=== PATIENT | female | born 1970 | race Caucasian/White ===

== ENCOUNTER 2019-12-30 09:17 | Inpatient (IN) ==
--- NOTE | 2019-12-30 10:09 | ERNOTE ---
Medical Problem HPI - Narrative Date of Service: 12/30/19 - General Chief Complaint: General Assessment Time Seen by Provider: 12/30/19 10:06 Source: patient, RN notes reviewed, old records Exam Limitations: no limitations - Immun/Allergies/Home Medications Immunizations: IMMUNIZATION HX Immunizations Up to Date Yes History of Influenza Vaccine Yes Hx Pneumococcal Vaccination No Allergies/Adverse Reactions: Allergies No Known Allergies Allergy (Verified 12/30/19 09:38) Home Medications: HOME MEDICATIONS Furosemide 20 mg PO DAILY 12/30/19 [Last Taken Unknown] Gabapentin 300 mg PO BID 12/30/19 [Last Taken Unknown] Levothyroxine Sodium [Synthroid] 75 mcg PO DAILY 12/30/19 [Last Taken Unknown] Spironolactone 50 mg PO DAILY 12/30/19 [Last Taken Unknown] - History of Present History Narrative: Jessica is a 49 year old female who presents to the ED for diarrhea. This began approximately 2 months ago. She started noticing small amounts of bright red blood in her stool and on the toilet paper after wiping in the past 2 or 3 days. She is having multiple liquid stools per day and is sometimes waking up at night with diarrhea. She denies nausea or vomiting. She occasionally has some diffuse abdominal pain. She has abdominal bloating but reports that it is not worse than usual. She was seen here for abdominal pain 2 years ago and was found to have acute hepatitis. She was drinking heavily at that time and has not drank since. She was transferred to [facility] then and has been followed by Dr. Fournier in gastroenterology. She has occasionally taken Pepto Bismol for her diarrhea without improvement. Timing: getting worse Modifying Factors - (Improves): Absent: medication Modifying Factors - (Worsens): Present: eating Review of Systems - Review of Systems Constitutional: Present: malaise. Absent: fever, chills EYE: Absent: eye pain, eye discharge ENT: Absent: ear pain, nose congestion, nasal drainage, sore throat Respiratory: Absent: shortness of breath, cough Cardiology: Absent: chest pain, palpitations Gastrointestinal/Abdominal: Present: See HPI, eating less. Absent: drinking less Genitourinary: Absent: frequency, dysuria Musculoskeletal: Absent: muscle pain, joint pain Skin: Absent: rash, lesions, change in color Neurological: Absent: headache, dizziness/light-headedness Endocrine: Present: no symptoms reported Hematologic/Lymphatic: Present: easy bruising, easy bleeding Psych: Present: no symptoms reported Medical History (Last Reviewed 12/30/19 @ 11:55 by Marisa Arreguin NP) Acute hepatitis Ascites Hyperthyroidism Surgical History: Surgical History (Last Reviewed 12/30/19 @ 11:55 by Marisa Arreguin NP) History of appendectomy Hx of bilateral breast reduction surgery Family History: Family History (Last Reviewed 12/30/19 @ 11:55 by Marisa Arreguin NP) Mother CVA (cerebral vascular accident) Father Skin cancer Social History: (Last Reviewed 12/30/19 @ 11:55 by Marisa Arreguin NP) Tobacco: Smoking Status: Current every day smoker Physical Exam - Physical Exam General Appearance: Present: wd/wn, alert, other - In no acute distress but appears to not feel well Head Exam: Present: normal inspection Eye Exam: PERRL: bilateral, Scleral icterus: bilateral Neck: Present: normal inspection, nontender, supple, full range of motion Respiratory: Present: no respiratory distress, normal breath sounds, no accessory muscle use, lungs clear Cardiovascular/Chest: Present: no murmur, normal peripheral pulses, tachycardia Gastrointestinal/Abdominal: Present: soft, tenderness - Mild, LUQ, distended - Ascites Back Exam: Present: normal inspection, normal range of motion Extremity Exam: Present: normal inspection, normal range of motion Neurological Exam: Present: alert, oriented, normal mood/affect, no motor/sensory deficits Skin Exam: Present: warm/dry, jaundice Progress - Results and Orders Patient's Lab Results:: I have reviewed the patient's lab results. - Vital Signs Patient's Vital Signs:: I have reviewed the patient's vital signs. Vital Signs: Vital Signs 12/30/19 09:34 Temperature 36.7 C Pulse Rate 140 H Respiratory Rate 14 Blood Pressure 131/76 O2 Sat by Pulse Oximetry 98 - EKG EKG #1 EKG: premature ventricular contraction, nonspecific ST T wave changes, other - Sinus tach, rate 136 EKG read: Reviewed by me - CT/Ultrasound CT/Ultrasound Narrative: CT abdomen/pelvis: Comparison: 12/14/2017 Findings: Liver is enlarged measuring over 28 cm. There is somewhat inhomogeneous but diffuse fatty infiltration. There is a subcapsular low-density area anteriorly. The mixed overall low density can also be associated with hepatitis which must be considered clinically. This is all unchanged in appearance in the interval. There is cholelithiasis. Spleen is prominent but within normal limits. Adrenal glands appear within normal limits. Pancreas appears within normal limits. Kidneys appear within normal limits. There is a fat-containing periumbilical hernia. There is no bowel obstruction or free air. There is some bowel wall thickening involving the distal small bowel less so the ascending colon. There is some free fluid in the pelvis which is actually less pronounced than the previous study. There is diverticulosis without CT evidence for diverticulitis. Uterus and pelvic structures otherwise appear within normal limits. IMPRESSION: HEPATOMEGALY WITH IRREGULAR LIVER ECHOTEXTURE SIMILAR IN APPEARANCE TO THE PREVIOUS STUDY. THERE APPEARS TO BE A COMPONENT OF FATTY INFILTRATION. HEPATITIS MUST BE CONSIDERED CLINICALLY. MILD ASCITES ACTUALLY LESS PRONOUNCED. SOME NONSPECIFIC SMALL BOWEL INFLAMMATORY CHANGE DISTAL SMALL BOWEL. THIS MAY BE ENTERITIS AND COULD BE ASSOCIATED WITH HEPATITIS AND CLINICAL CORRELATION IS NECESSARY. UNCOMPLICATED FAT-CONTAINING PERIUMBILICAL HERNIA. Electronically signed by Kris Humphreys M.D.. Kris Humphreys MD - Progress/Reassessment Chief Complaint: General Assessment Progress:: Unchanged Progress Note-Subjective: 12/30/19 15:28 The patient's hepatic function had been improving since she was diagnosed with cirrhosis 2 years ago and had stopped drinking, but it has now worsened again. She is also hypokalemic and hyponatremic. She is on thyroid replacement but her TSH is 8 despite her FT4 being elevated as well. The etiology of her diarrhea is not clear. She tested negative for CDiff. Cultures are pending. I spoke to Dr. Bowling about admitting the patient here but he felt that she needed to be at [facility] where she sees GI. I contacted the ED there at [phone] and am currently awaiting a call back. 12/30/19 17:[address] Richard at [facility] at approximately [phone]. He would be glad to accept the patient for transfer but they do not have any beds available. They will call us when they do. I discussed other options with the patient. She would rather stay here if possible. I again spoke with Dr. Bowling. He agreed to admit the patient. Departure Clinical Impression: Acute on chronic alcoholic liver disease, Hypokalemia UTI (urinary tract infection) Qualifiers: Urinary tract infection type: site unspecified Hematuria presence: with hematuria Qualified Code(s): N39.0 - Urinary tract infection, site not specified - Departure Disposition: Still a patient Condition: Stable Referrals: MICHELLE ESCALANTE [Primary Care Provider] -
[2019-12-30 10:28] LABS: Hematocrit 34.6 % (37.0-47.0); Hemoglobin 12.2 gm/dL (12.5-16.0); Mean Cell Volume 100.6 fl (78-100); Mean Corpuscular Hemoglobin 35.5 pg (27-31); Mean Corpuscular Hgb Conc 35.3 g/dl (32-36); Mean Platelet Volume 10.4 fl (8-12.5); Neutrophil # 12.8 K/mm3 (1.3-6.0); Neutrophil % 87.3 % (42-75.0); Platelet Count 116 K/mm3 (150-450); Red Blood Count 3.44 M/mm3 (4.2-5.4); Red Cell Distribution Width 17.3 % (11.5-14.0); White Blood Count 14.6 K/mm3 (4.0-10.5)
[2019-12-30 10:48] LABS: ALT 56 U/L (19-67); AST 254 U/L (0-48); Albumin * 2.8 gm/dl (3.4-5.0); Alkaline Phosphatase * 544 U/L (50-170); Anion Gap 17.8 mmol/L (6.8-13.8); BUN/Creatinine Ratio 3.3 (9.0-21.6); Bilirubin, Total 12.4 mg/dL (0.0-1.1); Blood Urea Nitrogen 3 mg/dL (3-23); Ca. Corrected For Albumin 9.2 mg/dL (8.4-10.2); Calcium * 8.6 mg/dL (7.9-10.9); Carbon Dioxide 24.7 mmol/L (24-32.6); Chloride 91 mmol/L (97-106); Glucose * 167 mg/dL (70-110); Lipase 104 U/L (73-393); Sodium 131 mmol/L (132-142); TSH * 8.203 uIU/mL (0.358-3.74); Total Protein 8.4 gm/dL (6.2-8.2)
[2019-12-30 10:52] LABS: INR 1.97 INR (0.92-1.08); Partial Thrombolplastin Time 28.1 Seconds (24-32)
[2019-12-30 10:59] LABS: Potassium 2.5 mmol/L (3.4-4.6)
[2019-12-30] MEDS ORDERED: DIATRIZOATE MEGLUMINE, SODIUM 30 ML BTL PO ONE (11:21)
[2019-12-30] MEDS ORDERED: NORMAL SALINE 1,000 ML IV ONE (11:21)
[2019-12-30] MEDS ORDERED: POTASSIUM CHLORIDE IN WATER 100 ML IV ONE (11:21)
[2019-12-30] MEDS ORDERED: ONDANSETRON HCL/PF 2 MG/ML VIAL IV ONE (11:50)
[2019-12-30 12:19] LABS: Bacteria Few; Neutrophil 100 % (42-75); White Blood Count Rare; Yeast Few
[2019-12-30 16:04] LABS: Urine Bilirubin 6 mg/dl (NEGATIVE); Urine Blood Negative /ul (NEGATIVE); Urine Ketone Negative (NEGATIVE); Urine Protein Negative (NEGATIVE); Urine Specific Gravity <=1.005 SP.GR. (1.005-1.010); Urine Urobilinogen Normal (NORMAL); Urine pH 6.5 pH (5.0-7.0)
[2019-12-30 16:12] LABS: Urine Appearance Cloudy (CLEAR); Urine Bacteria 3+; Urine Color Amber; Urine Nitrite Positive (NEGATIVE); Urine RBC 0-5 /hpf (0-5)
[2019-12-30] MEDS ORDERED: cefTRIAXone SODIUM 1,000 MG/100 ML BAG IV ONE (16:20)
[2019-12-30] MEDS ORDERED: LEVOTHYROXINE SODIUM 75 MCG TABLET PO SCH (19:30)
[2019-12-30] MEDS ORDERED: metroNIDAZOLE 500 MG TABLET PO ONE (19:38)
--- NOTE | 2019-12-30 20:10 | HP ---
Chief Complaint - Chief Complaint Date of Service: 12/30/19 Time of Service: 19:00 Chief Complaint: Diarrhea, red blood in the stools, liver failure History of Present Illness: This is a 49-year-old female patient with no local primary care physician but who has been admitted to our hospital previously for hepatitis and liver failure. For the past 2 months she has been having diarrhea and having multiple liquid stools every day and sometimes at night. She has been seen at the GI clinic at the [place] but it has been quite a while and apparently she is in lost to follow-up. At this point I do not know if her previous hepatitis was infectious or if it was just alcoholic hepatitis. This visit she is afebrile and denies pain anywhere. Work-up in the emergency room shows liver failure with the ALT being normal but the AST being 5 times upper limit of normal at 256. Alkaline phosphatase is greater than 500. The bilirubin is greater than 12. Urinalysis reflects spillage of a large amount of bilirubin in the urine. CT scan of the abdomen shows the liver is enlarged measuring 28 cm and it is nodular and cirrhotic in appearance. There is cholelithiasis present. No evidence of acute cholecystitis. The common bile duct was not discussed on the CT report but would be better evaluated by ultrasound anyway. Tonight she reports that she is hungry. She had an episode of dry heaves this morning when she gagged herself with her toothbrush but aside from that has not had any vomiting. She has had bright red blood on tissue when wiping after stooling. This is her main concern. Strikingly she does not appear jaundiced or icteric with this high of a bilirubin. The liver is palpably enlarged but not particularly tender to palpation. The CT shows a small amount of pelvic fluid which is probably ascites but there is no large amount of ascites. And her percussion splash is negative. There is no peripheral edema. She denies diabetes or history of the same however her random blood sugar admission to ER was 167. Social history entered by the nurse says she never has been an alcohol drinker. I will have to confirm that with her tomorrow morning as a previous diagnoses suggested alcoholic cirrhosis of the liver. If she has not been a drinker then this is probably PEREZ. Medical History (Last Reviewed 12/30/19 @ 18:01 by Cynthia Lopes RN) Acute hepatitis Ascites Hyperthyroidism Surgical History: Surgical History (Last Reviewed 12/30/19 @ 18:01 by Cynthia Lopes RN) History of appendectomy Hx of bilateral breast reduction surgery Family History: Family History (Last Reviewed 12/30/19 @ 18:03 by Cynthia Lopes RN) Mother CVA (cerebral vascular accident) Father Skin cancer Brother Crohn disease Social History: (Last Reviewed 12/30/19 @ 18:05 by Cynthia Lopes RN) Social History: [facility]: No Marital status: lives independently: Yes household members: spouse number of children: 2 current occupational status: employed current occupation: cook at [employer] Highest education level completed: Associate degree: occupat Service: No Tobacco: Smoking Status: Current every day smoker Smoking cigarettes per day: 10 Alcohol: alcohol intake: never Substance Use: substance use type: does not use Dietary Habits: caffeine: No Review Of Systems (GEN) - Review of Systems Generalized/Overall Review: Present: Fatigue. Absent: Chills, Fever, Malaise EENTM: Present: No Symptoms Reported Respiratory: Present: No Symptoms Reported Cardiac: Present: No Symptoms Reported Abdominal: Present: Abdominal Pain - In the midepigastrium in the mornings., Diarrhea, Bright blood from rectum Genitourinary: Present: No Symptoms Reported Musculoskeletal: Present: No Symptoms Reported Neurological: Present: No Symptoms Reported Skin: Present: No Symptoms Reported Endocrine: Present: No Symptoms Reported Misc: All systems neg except as marked Immunizations: IMMUNIZATION HX Immunizations Up to Date Yes History of Influenza Vaccine Yes Hx Pneumococcal Vaccination No Allergies/Adverse Reactions: Allergies Allergy/AdvReac Type Severity Reaction Status Date / Time No Known Allergies Allergy Verified 12/30/19 18:05 Home Medications: HOME MEDICATIONS Furosemide 20 mg PO DAILY 12/30/19 [Last Taken Unknown] Gabapentin 300 mg PO BID 12/30/19 [Last Taken Unknown] Levothyroxine Sodium [Synthroid] 75 mcg PO MOTUWETHFRSA 12/30/19 [Last Taken Unknown] Levothyroxine Sodium [Synthroid] 150 mcg PO ROSADO 12/30/19 [Last Taken Unknown] Potassium Chloride 10 meq PO BID 12/30/19 [Last Taken Unknown] Spironolactone 50 mg PO DAILY 12/30/19 [Last Taken Unknown] Vitamin B Complex 1 ea PO DAILY 12/30/19 [Last Taken Unknown] Exam - Exam Vital Signs: Vital Signs - Last Taken Temp 37.2 C 12/30/19 18:08 Pulse 98 12/30/19 18:08 Resp 12 12/30/19 18:08 BP 108/79 12/30/19 18:08 Pulse Ox 95 12/30/19 18:08 Constitutional: Present: Alert, Oriented x3, Cooperative, Well developed, Well nourished, No distress ENT Exam: Present: normal ENT inspection, hearing grossly normal, pharynx no rmal, TMs normal Eye Exam: bilateral eye: normal inspection, PERRL, EOMI Neck: Present: non-tender, full range of motion, supple, normal inspection Back Exam: Present: normal inspection, no CVA tenderness, no vertebral tenderness Breasts: Present: Exam deferred Respiratory: Present: chest non-tender, lungs clear, normal breath sounds, no respiratory distress, no accessory muscle use Cardiovascular/Chest: Present: normal peripheral pulses, regular rate, rhythm, no chest tenderness, no edema, no gallop, no JVD, no murmur, no rub Peripheral Pulses: carotid (R): 2+, carotid (L): 2+, radial (R): 2+, radial (L): 2+ Abdomen: Present: soft, no rebound tenderness, negative Taylor sign, distended. Absent: no hepatospenomegaly - The liver is definitely enlarged measuring [address] and is palpably enlarged., guarding, rigidity, rebound tenderness, CVA tenderness /Rectal: Present: Exam deferred Extremity: Present: normal range of motion, non-tender, normal inspection, no pedal edema, no calf tenderness, normal capillary refill Skin Exam: Present: normal color, warm/dry, no cyanosis Lymphatic: Present: no adenopathy Neurologic: Present: senior staff consultant II-XII nml as tested, normal cerebellar test, no motor/sensory deficits, alert, normal mood/affect Appearance: Present: appropriate appearance, appropriate insight, neat, no memory impairment Eye contact: Present: cooperative, good eye contact, normal speech Thoughts: Present: normal thought pattern, no apparent hallucination Diagnostic Studies: Abnormal Lab Results 12/30/19 12/30/19 12/30/19 Range/Units 10:17 10:17 10:17 WBC 14.6 H (4.0-10.5) K/mm3 RBC 3.44 L (4.2-5.4) M/mm3 Hgb 12.2 L (12.5-16.0) gm/dL Hct 34.6 L (37.0-47.0) % MCV 100.6 H (78-100) fl MCH 35.5 H (27-31) pg RDW 17.3 H (11.5-14.0) % Plt Count 116 L (150-450) K/mm3 Immature Gran % (Auto) 0.70 H (0.001-0.429) % Immature Gran # (Auto) 0.10 H (0.000-0.0310) K/mm3 Neutrophils % 87.3 H (42-75.0) % Lymphocytes % 3.8 L (20-51) % Neutrophils # 12.8 H (1.3-6.0) K/mm3 Lymphocytes # 0.55 L (1.5-3.5) k/mm3 Monocytes # 1.1 H (0.0-1.0) k/mm3 PT 19.0 H (9.1-10.7) Seconds INR (Anticoag Therapy) 1.97 H (0.92-1.08) INR Sodium 131 L (132-142) mmol/L Potassium 2.5 L D (3.4-4.6) mmol/L Chloride 91 L (97-106) mmol/L Anion Gap 17.8 H (6.8-13.8) mmol/L BUN/Creatinine Ratio 3.3 L (9.0-21.6) Random Glucose 167 H (70-110) mg/dL Total Bilirubin 12.4 H (0.0-1.1) mg/dL AST 254 H (0-48) U/L Alkaline Phosphatase 544 H (50-170) U/L Ammonia (11-35) mcmol/L Total Protein 8.4 H (6.2-8.2) gm/dL Albumin 2.8 L (3.4-5.0) gm/dl TSH 8.203 H (0.358-3.74) uIU/mL Free T4 (0.76-1.46) ng/dL Urine Nitrate (NEGATIVE) Urine Bilirubin (NEGATIVE) mg/dl Urine Ictotest (NEGATIVE) Ur Leukocyte Esterase (NEGATIVE) /ul Urine WBC (0-5) /hpf Ur Epithelial Cells (0-5) /hpf Urine Bacteria (NONE) Stool Neutrophil # (42-75) % Stool Leukocytes, Qual 12/30/19 12/30/19 12/30/19 Range/Units 10:17 10:17 10:18 WBC (4.0-10.5) K/mm3 RBC (4.2-5.4) M/mm3 Hgb (12.5-16.0) gm/dL Hct (37.0-47.0) % MCV (78-100) fl MCH (27-31) pg RDW (11.5-14.0) % Plt Count (150-450) K/mm3 Immature Gran % (Auto) (0.001-0.429) % Immature Gran # (Auto) (0.000-0.0310) K/mm3 Neutrophils % (42-75.0) % Lymphocytes % (20-51) % Neutrophils # (1.3-6.0) K/mm3 Lymphocytes # (1.5-3.5) k/mm3 Monocytes # (0.0-1.0) k/mm3 PT (9.1-10.7) Seconds INR (Anticoag Therapy) (0.92-1.08) INR Sodium (132-142) mmol/L Potassium (3.4-4.6) mmol/L Chloride (97-106) mmol/L Anion Gap (6.8-13.8) mmol/L BUN/Creatinine Ratio (9.0-21.6) Random Glucose (70-110) mg/dL Total Bilirubin (0.0-1.1) mg/dL AST (0-48) U/L Alkaline Phosphatase (50-170) U/L Ammonia 43.0 H (11-35) mcmol/L Total Protein (6.2-8.2) gm/dL Albumin (3.4-5.0) gm/dl TSH (0.358-3.74) uIU/mL Free T4 1.87 H (0.76-1.46) ng/dL Urine Nitrate (NEGATIVE) Urine Bilirubin (NEGATIVE) mg/dl Urine Ictotest (NEGATIVE) Ur Leukocyte Esterase (NEGATIVE) /ul Urine WBC (0-5) /hpf Ur Epithelial Cells (0-5) /hpf Urine Bacteria (NONE) Stool Neutrophil # 100 H (42-75) % Stool Leukocytes, Qual Rare H 12/30/19 Range/Units 15:55 WBC (4.0-10.5) K/mm3 RBC (4.2-5.4) M/mm3 Hgb (12.5-16.0) gm/dL Hct (37.0-47.0) % MCV (78-100) fl MCH (27-31) pg RDW (11.5-14.0) % Plt Count (150-450) K/mm3 Immature Gran % (Auto) (0.001-0.429) % Immature Gran # (Auto) (0.000-0.0310) K/mm3 Neutrophils % (42-75.0) % Lymphocytes % (20-51) % Neutrophils # (1.3-6.0) K/mm3 Lymphocytes # (1.5-3.5) k/mm3 Monocytes # (0.0-1.0) k/mm3 PT (9.1-10.7) Seconds INR (Anticoag Therapy) (0.92-1.08) INR Sodium (132-142) mmol/L Potassium (3.4-4.6) mmol/L Chloride (97-106) mmol/L Anion Gap (6.8-13.8) mmol/L BUN/Creatinine Ratio (9.0-21.6) Random Glucose (70-110) mg/dL Total Bilirubin (0.0-1.1) mg/dL AST (0-48) U/L Alkaline Phosphatase (50-170) U/L Ammonia (11-35) mcmol/L Total Protein (6.2-8.2) gm/dL Albumin (3.4-5.0) gm/dl TSH (0.358-3.74) uIU/mL Free T4 (0.76-1.46) ng/dL Urine Nitrate Positive H (NEGATIVE) Urine Bilirubin 6 H (NEGATIVE) mg/dl Urine Ictotest Positive H (NEGATIVE) Ur Leukocyte Esterase 100 H (NEGATIVE) /ul Urine WBC 10-25 H (0-5) /hpf Ur Epithelial Cells 10-25 H (0-5) /hpf Urine Bacteria 3+ H (NONE) Stool Neutrophil # (42-75) % Stool Leukocytes, Qual Laboratory Results WBC 14.6 K/mm3 (4.0-10.5) H 12/30/19 10:17 RBC 3.44 M/mm3 (4.2-5.4) L 12/30/19 10:17 Hgb 12.2 gm/dL (12.5-16.0) L 12/30/19 10:17 Hct 34.6 % (37.0-47.0) L 12/30/19 10:17 MCV 100.6 fl (78-100) H 12/30/19 10:17 MCH 35.5 pg (27-31) H 12/30/19 10:17 MCHC 35.3 g/dl (32-36) 12/30/19 10:17 RDW 17.3 % (11.5-14.0) H 12/30/19 10:17 Plt Count 116 K/mm3 (150-450) L 12/30/19 10:17 MPV 10.4 fl (8-12.5) 12/30/19 10:17 Immature Gran % (Auto) 0.70 % (0.001-0.429) H 12/30/19 10:17 Immature Gran # (Auto) 0.10 K/mm3 (0.000-0.0310) H 12/30/19 10:17 Neutrophils % 87.3 % (42-75.0) H 12/30/19 10:17 Lymphocytes % 3.8 % (20-51) L 12/30/19 10:17 Monocytes % 7.8 % (0.0-9) 12/30/19 10:17 Eosinophils % 0.1 % (0.0-3.0) 12/30/19 10:17 Basophils % 0.3 % (0.0-1.0) 12/30/19 10:17 Nucleated RBC % 0.0 k/mm3 (0-1) 12/30/19 10:17 Neutrophils # 12.8 K/mm3 (1.3-6.0) H 12/30/19 10:17 Lymphocytes # 0.55 k/mm3 (1.5-3.5) L 12/30/19 10:17 Monocytes # 1.1 k/mm3 (0.0-1.0) H 12/30/19 10:17 Eosinophils # 0.0 k/mm3 (0.0-0.7) 12/30/19 10:17 Absolute Basophils 0.0 k/mm3 (0.0-0.1) 12/30/19 10:17 PT 19.0 Seconds (9.1-10.7) H 12/30/19 10:17 INR (Anticoag Therapy) 1.97 INR (0.92-1.08) H 12/30/19 10:17 PTT ([place]) 28.1 Seconds (24-32) 12/30/19 10:17 Sodium 131 mmol/L (132-142) L 12/30/19 10:17 Plasma Sodium 132 mmol/L (130-142) 12/30/19 10:17 Potassium 2.5 mmol/L (3.4-4.6) L D 12/30/19 10:17 Chloride 91 mmol/L (97-106) L 12/30/19 10:17 Carbon Dioxide 24.7 mmol/L (24-32.6) 12/30/19 10:17 Anion Gap 17.8 mmol/L (6.8-13.8) H 12/30/19 10:17 BUN 3 mg/dL (3-23) 12/30/19 10:17 Creatinine 0.90 mg/dL (0.4-1.4) 12/30/19 10:17 Est GFR (Non-Af Amer) 71 mL/min (60-130) D 12/30/19 10:17 BUN/Creatinine Ratio 3.3 (9.0-21.6) L 12/30/19 10:17 Random Glucose 167 mg/dL (70-110) H 12/30/19 10:17 Calcium 8.6 mg/dL (7.9-10.9) 12/30/19 10:17 Calcium Adj for Albumin 9.2 mg/dL (8.4-10.2) 12/30/19 10:17 Total Bilirubin 12.4 mg/dL (0.0-1.1) H 12/30/19 10:17 AST 254 U/L (0-48) H 12/30/19 10:17 ALT 56 U/L (19-67) 12/30/19 10:17 Alkaline Phosphatase 544 U/L (50-170) H 12/30/19 10:17 Ammonia 43.0 mcmol/L (11-35) H 12/30/19 10:17 Total Protein 8.4 gm/dL (6.2-8.2) H 12/30/19 10:17 Albumin 2.8 gm/dl (3.4-5.0) L 12/30/19 10:17 Lipase 104 U/L (73-393) 12/30/19 10:17 TSH 8.203 uIU/mL (0.358-3.74) H 12/30/19 10:17 Free T4 1.87 ng/dL (0.76-1.46) H 12/30/19 10:17 Urine Color Jovana 12/30/19 15:55 Urine Appearance Cloudy (CLEAR) 12/30/19 15:55 Urine pH 6.5 pH (5.0-7.0) 12/30/19 15:55 Ur Specific [place] <=1.005 SP.GR. (1.005-1.010) 12/30/19 15:55 Urine Protein Negative mg/dL (NEGATIVE) 12/30/19 15:55 Urine Glucose (UA) Negative mg/dL (NEGATIVE) 12/30/19 15:55 Urine Ketones Negative mg/dL (NEGATIVE) 12/30/19 15:55 Urine Blood Negative /ul (NEGATIVE) 12/30/19 15:55 Urine Nitrate Positive (NEGATIVE) H 12/30/19 15:55 Urine Bilirubin 6 mg/dl (NEGATIVE) H 12/30/19 15:55 Urine Ictotest Positive (NEGATIVE) H 12/30/19 15:55 Urine Urobilinogen Normal EU/dl (NORMAL) 12/30/19 15:55 Ur Leukocyte Esterase 100 /ul (NEGATIVE) H 12/30/19 15:55 Urine RBC 0-5 /hpf (0-5) 12/30/19 15:55 Urine WBC 10-25 /hpf (0-5) H 12/30/19 15:55 Ur Epithelial Cells 10-25 /hpf (0-5) H 12/30/19 15:55 Urine Bacteria 3+ (NONE) H 12/30/19 15:55 Urine Culture Comments Culture to follow 12/30/19 15:55 Stool Occult Blood Negative 12/30/19 10:18 Stool White Cell Res 4 Few 12/30/19 10:18 Stool Neutrophil # 100 % (42-75) H 12/30/19 10:18 Stool Leukocytes, Qual Rare H 12/30/19 10:18 Stl C.difficile Tox A&B Negative (Negative) 12/30/19 10:18 Ethyl Alcohol Less than 3.0 mg/dL (0.0-10.0) 12/30/19 10:17 Yeast (Wet Prep) Few 12/30/19 10:18 Assessment/Plan - Narrative Narrative: 1. Correct the hypokalemia 2. Had Rocephin for the UTI and add metronidazole for the possible stool infection. Note leukocytes are present in the stool. 3. Recheck lab tomorrow morning to include CBC, CMP, magnesium, pro time, D- dimer, and hepatitis screening panel for B&C. 4. Add Metamucil for bulking of the stool. - Assessment/Plan (1) Abnormal LFTs Problem: Acute (2) Hypokalemia Problem: Acute (3) Hepatic cirrhosis Problem: Acute (4) UTI (urinary tract infection) Problem: Acute Qualifiers: Urinary tract infection type: site unspecified Hematuria presence: with hematuria Qualified Code(s): N39.0 - Urinary tract infection, site not specified; R31.9 - Hematuria, unspecified (5) Hyperammonemia Problem: Acute (6) Hepatomegaly Problem: Acute (7) Elevated INR Problem: Acute
[2019-12-30] MEDS ORDERED: metroNIDAZOLE 500 MG TABLET ONE (21:24)
[2019-12-30] MEDS: PSYLLIUM SEED 1 PACKET PACKET PO SCH (21:28)
[2019-12-30] MEDS: POTASSIUM CHLORIDE 20 MEQ TABLET.SA PO SCH (21:28)
[2019-12-30] MEDS: GABAPENTIN 300 MG CAPSULE PO SCH (21:28)
[2019-12-31 06:37] LABS: Hematocrit 30.3 % (37.0-47.0); Hemoglobin 10.4 gm/dL (12.5-16.0); Mean Cell Volume 101.7 fl (78-100); Mean Corpuscular Hemoglobin 34.9 pg (27-31); Mean Corpuscular Hgb Conc 34.3 g/dl (32-36); Mean Platelet Volume 11.3 fl (8-12.5); Neutrophil # 7.3 K/mm3 (1.3-6.0); Neutrophil % 78.1 % (42-75.0); Platelet Count 111 K/mm3 (150-450); Red Blood Count 2.98 M/mm3 (4.2-5.4); Red Cell Distribution Width 17.6 % (11.5-14.0); White Blood Count 9.3 K/mm3 (4.0-10.5)
[2019-12-31 06:44] LABS: Prothrombin Time (Patient) 23.8 Seconds (9.1-10.7)
[2019-12-31 06:45] LABS: INR 2.49 INR (0.92-1.08)
[2019-12-31 06:51] LABS: Albumin * 2.3 gm/dl (3.4-5.0); Anion Gap 14.8 mmol/L (6.8-13.8); BUN/Creatinine Ratio 3.8 (9.0-21.6); Bilirubin, Total 12.8 mg/dL (0.0-1.1); Ca. Corrected For Albumin 9.3 mg/dL (8.4-10.2); Calcium * 8.3 mg/dL (7.9-10.9); Carbon Dioxide 24.5 mmol/L (24-32.6); Magnesium 1.1 mg/dL (1.2-2.8); Total Protein 6.8 gm/dL (6.2-8.2)
[2019-12-31 07:10] LABS: Potassium 2.3 mmol/L (3.4-4.6)
[2019-12-31] MEDS: PSYLLIUM SEED 1 PACKET PACKET PO SCH ×2 (08:17→20:37)
[2019-12-31] MEDS: LEVOTHYROXINE SODIUM 75 MCG TABLET PO SCH (08:17)
[2019-12-31] MEDS: POTASSIUM CHLORIDE 20 MEQ TABLET.SA PO SCH ×3 (08:18→17:02)
[2019-12-31] MEDS: GABAPENTIN 300 MG CAPSULE PO SCH ×2 (08:18→20:37)
[2019-12-31] MEDS: FUROSEMIDE 20 MG TABLET PO SCH (08:18)
[2019-12-31] MEDS ORDERED: POTASSIUM CHLORIDE 10 MEQ TABLET.SA PO SCH (12:38)
[2019-12-31] MEDS: NICOTINE 14 MG PATC TD SCH (15:36)
[2020-01-01] MEDS: LEVOTHYROXINE SODIUM 75 MCG TABLET PO SCH (07:11)
[2020-01-01 08:20] LABS: Hematocrit 33.1 % (37.0-47.0); Hemoglobin 11.6 gm/dL (12.5-16.0); Mean Cell Volume 101.2 fl (78-100); Mean Corpuscular Hemoglobin 35.5 pg (27-31); Mean Platelet Volume 10.6 fl (8-12.5); Neutrophil # 9.4 K/mm3 (1.3-6.0); Neutrophil % 79.7 % (42-75.0); Platelet Count 126 K/mm3 (150-450); Red Blood Count 3.27 M/mm3 (4.2-5.4); Red Cell Distribution Width 18.6 % (11.5-14.0); White Blood Count 11.9 K/mm3 (4.0-10.5)
[2020-01-01 08:32] LABS: Albumin * 2.4 gm/dl (3.4-5.0); Anion Gap 15.6 mmol/L (6.8-13.8); BUN/Creatinine Ratio 3.7 (9.0-21.6); Bilirubin, Total 17.2 mg/dL (0.0-1.1); Ca. Corrected For Albumin 9.7 mg/dL (8.4-10.2); Calcium * 8.7 mg/dL (7.9-10.9); Carbon Dioxide 25.2 mmol/L (24-32.6); Potassium 2.8 mmol/L (3.4-4.6); Total Protein 7.4 gm/dL (6.2-8.2)
[2020-01-01] MEDS: GABAPENTIN 300 MG CAPSULE PO SCH ×2 (09:17→20:14)
[2020-01-01] MEDS: PSYLLIUM SEED 1 PACKET PACKET PO SCH ×2 (09:17→20:14)
[2020-01-01] MEDS: POTASSIUM CHLORIDE 20 MEQ TABLET.SA PO SCH ×2 (09:17→16:08)
--- NOTE | 2020-01-01 12:06 | PN ---
Subjective - Date and Time Seen Date: 12/31/19 Time: 11:40 Subjective Narrative: Jessica has had an uneventful night. This morning's laboratory work does not show any improvement in liver function studies. Her bilirubin is 12. Her potassium had dropped to 2.3 and then back to 2.5. Ultrasound is scheduled for after 2:00 this afternoon. Her exam shows scleral icterus and mild cutaneous icterus. The etiology is uncertain. She insists that she is not had a drink of alcohol in 2 years. The liver is very enlarged and nodular suggesting nodular cirrhosis. She has not had any acholic stools. Urine has been much darker than usual. The liver is palpably enlarged but not particularly tender. The CT scan did show some gallstones but no evidence of acute cholecystitis. It did not comment on the common bile duct for which ultrasound is probably a better study. The transverse measurement of the liver is 28 cm. Objective - Review of Systems Generalized/Overall Review: Reports: Weakness, Malaise EENTM: Reports: No Symptoms Reported, Other - Scleral icterus Respiratory: Reports: No Symptoms Reported Cardiac: Reports: No Symptoms Reported Abdominal: Reports: Other - Increased abdominal girth Genitourinary Symptoms: Reports: No Symptoms Reported, Other Musculoskeletal Complaints: Reports: No Symptoms Reported Neurological: Reports: No Symptoms Reported Skin: Reports: Change in Color - Cutaneous icterus Endocrine: Reports: No Symptoms Reported - Vitals Vitals: Last Vital Signs Temp 36.9 C 01/01/20 06:18 Pulse 115 H 01/01/20 06:18 Resp 18 01/01/20 06:18 BP 99/58 01/01/20 06:18 Pulse Ox 96 01/01/20 06:18 - Abnormal Lab Findings Abnormal Lab Findings: Abnormal Lab Results 12/31/19 01/01/20 01/01/20 Range/Units 17:57 08:10 08:10 WBC 11.9 H D (4.0-10.5) K/mm3 RBC 3.27 L (4.2-5.4) M/mm3 Hgb 11.6 L (12.5-16.0) gm/dL Hct 33.1 L (37.0-47.0) % MCV 101.2 H (78-100) fl MCH 35.5 H (27-31) pg RDW 18.6 H (11.5-14.0) % Plt Count 126 L (150-450) K/mm3 Immature Gran % (Auto) 0.70 H (0.001-0.429) % Immature Gran # (Auto) 0.08 H (0.000-0.0310) K/mm3 Neutrophils % 79.7 H (42-75.0) % Lymphocytes % 9.6 L (20-51) % Monocytes % 9.2 H (0.0-9) % Neutrophils # 9.4 H (1.3-6.0) K/mm3 Lymphocytes # 1.14 L (1.5-3.5) k/mm3 Monocytes # 1.1 H (0.0-1.0) k/mm3 Potassium 2.5 L 2.8 L (3.4-4.6) mmol/L Chloride 96 L (97-106) mmol/L Anion Gap 15.6 H (6.8-13.8) mmol/L BUN/Creatinine Ratio 3.7 L (9.0-21.6) Total Bilirubin 17.2 H (0.0-1.1) mg/dL AST 114 H (0-48) U/L Alkaline Phosphatase 383 H (50-170) U/L Albumin 2.4 L (3.4-5.0) gm/dl - EKG/Xray Findings EKG: NSR, rhythm EKG read: Interp. by me XRAY: abdomen - CT reviewed by me Interpretation: Reviewed by me - Exam Constitutional: Present: Alert, Oriented x3, Cooperative, Well developed, Well nourished, No distress ENT Exam: Present: normal ENT inspection, hearing grossly normal, pharynx normal, TMs normal Neck: Present: non-tender, full range of motion, supple, normal inspection, trachea midline Breasts: Present: Exam deferred Respiratory: Present: chest non-tender, lungs clear, normal breath sounds, no respiratory distress, no accessory muscle use Cardiovascular/Chest: Present: normal peripheral pulses, regular rate, rhythm, no chest tenderness, no edema, no gallop, no JVD, no murmur, no rub Abdomen: Present: Normal bowel sounds, soft, nontender, nondistended, no rebound tenderness, no hepatospenomegaly, no masses /Rectal: Present: Exam deferred Extremity: Present: normal range of motion, non-tender, normal inspection, no pedal edema, no calf tenderness, normal capillary refill Skin Exam: Present: normal color, warm/dry, no cyanosis Lymphatic: Present: no adenopathy Neurologic: Present: 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, normal cerebellar test, no motor/sensory deficits, alert, normal mood/affect, oriented x 3 Appearance: Present: appropriate appearance, appropriate insight, neat, no memory impairment Eye contact: Present: cooperative, good eye contact, normal speech Thoughts: Present: normal thought pattern, no apparent hallucination Assessment/Plan - Problems/Diagnosis (1) Abnormal LFTs Problem: Acute (2) Hypokalemia Problem: Acute (3) Hepatic cirrhosis Problem: Acute Qualifiers: Hepatic cirrhosis type: alcoholic cirrhosis Ascites presence: with ascites Qualified Code(s): K70.31 - Alcoholic cirrhosis of liver with ascites (4) UTI (urinary tract infection) Problem: Acute Qualifiers: Urinary tract infection type: site unspecified Hematuria presence: with h ematuria Qualified Code(s): N39.0 - Urinary tract infection, site not specified; R31.9 - Hematuria, unspecified (5) Hyperammonemia Problem: Acute (6) Hepatomegaly Problem: Acute (7) Elevated INR Problem: Acute
[2020-01-01 12:18] LABS: Hep B Surface Antigen Confirm DNR
[2020-01-01 12:48] LABS: Hepatitis B Surface Antigen NON-REACTIVE (NON-REACTIVE)
[2020-01-01] MEDS: NICOTINE 14 MG PATC TD SCH (15:25)
--- NOTE | 2020-01-01 18:28 | PN ---
Subjective - Date and Time Seen Date: 01/01/20 Time: 13:00 Subjective Narrative: Proceed has had an uneventful night and is feeling better today. She is more jaundice. She has more scleral icterus as well. Her bilirubin has gone up from 12-17. Her transaminases and alkaline phosphatase have fallen some. Her potassium has improved from 2.5-2.8. She is responding to oral potassium therapy and so I will continue the same. She continues to have loose stools very frequently. She said the diarrhea started about 2 months ago. Stool did have leukocytes present. No culture reports are available yet. The [facility] is still on diversion and they do not have a room for her yet. They are hopeful that we will know sometime later this afternoon or tomorrow about being able to transfer her. She is otherwise stable and doing well. She is requesting something for sleep. Objective - Review of Systems Generalized/Overall Review: Reports: No Symptoms Reported, Weakness, Fatigue EENTM: Reports: No Symptoms Reported Respiratory: Reports: No Symptoms Reported Cardiac: Reports: No Symptoms Reported Abdominal: Reports: Diarrhea, Bright blood from rectum, Other - Early satiety Genitourinary Symptoms: Reports: No Symptoms Reported Musculoskeletal Complaints: Reports: No Symptoms Reported Neurological: Reports: No Symptoms Reported Skin: Reports: Change in Color - Cutaneous icterus Endocrine: Reports: No Symptoms Reported - Vitals Vitals: Last Vital Signs Temp 36.7 C 01/01/20 14:30 Pulse 105 H 01/01/20 14:30 Resp 18 01/01/20 14:30 BP 98/66 01/01/20 14:30 Pulse Ox 97 01/01/20 14:30 - Abnormal Lab Findings Abnormal Lab Findings: Abnormal Lab Results 12/31/19 01/01/20 01/01/20 Range/Units 17:57 08:10 08:10 WBC 11.9 H D (4.0-10.5) K/mm3 RBC 3.27 L (4.2-5.4) M/mm3 Hgb 11.6 L (12.5-16.0) gm/dL Hct 33.1 L (37.0-47.0) % MCV 101.2 H (78-100) fl MCH 35.5 H (27-31) pg RDW 18.6 H (11.5-14.0) % Plt Count 126 L (150-450) K/mm3 Immature Gran % (Auto) 0.70 H (0.001-0.429) % Immature Gran # (Auto) 0.08 H (0.000-0.0310) K/mm3 Neutrophils % 79.7 H (42-75.0) % Lymphocytes % 9.6 L (20-51) % Monocytes % 9.2 H (0.0-9) % Neutrophils # 9.4 H (1.3-6.0) K/mm3 Lymphocytes # 1.14 L (1.5-3.5) k/mm3 Monocytes # 1.1 H (0.0-1.0) k/mm3 Potassium 2.5 L 2.8 L (3.4-4.6) mmol/L Chloride 96 L (97-106) mmol/L Anion Gap 15.6 H (6.8-13.8) mmol/L BUN/Creatinine Ratio 3.7 L (9.0-21.6) Total Bilirubin 17.2 H (0.0-1.1) mg/dL AST 114 H (0-48) U/L Alkaline Phosphatase 383 H (50-170) U/L Albumin 2.4 L (3.4-5.0) gm/dl - EKG/Xray Findings XRAY: Abdominal ultrasound shows no biliary outlet obstruction and the common bile duct appears normal. She does have some gallstones but there is no evidence to support cholecystitis. - No evidence to support biliary outlet obstruction. Common bile duct is normal in diameter. The liver is large and nodular. The spleen is upper limit of normal in size. Pancreas was nonvisible because of abdominal gas. Interpretation: Reviewed by me - Exam Constitutional: Present: Alert, Oriented x3, Cooperative, Well developed, Well nourished, Mild distress ENT Exam: Present: normal ENT inspection, hearing grossly normal, pharynx normal Neck: Present: non-tender, full range of motion, supple, normal inspection, trachea midline Breasts: Present: Exam deferred Respiratory: Present: chest non-tender, lungs clear, normal breath sounds, no respiratory distress, no accessory muscle use Cardiovascular/Chest: Present: normal peripheral pulses, regular rate, rhythm, no chest tenderness, no edema, no gallop, no JVD, no murmur, no rub Abdomen: Present: Normal bowel sounds, soft, nontender, distended. 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 CBC and CMP again tomorrow morning 2. Temazepam 30 mg 1 p.o. at at bedtime 3. Double up on Metamucil 4. Awaiting transfer to the [facility] - Problems/Diagnosis (1) Abnormal LFTs Problem: Acute (2) Hypokalemia Problem: Acute (3) Hepatic cirrhosis Problem: Acute Qualifiers: Hepatic cirrhosis type: alcoholic cirrhosis Ascites presence: with ascites Qualified Code(s): K70.31 - Alcoholic cirrhosis of liver with ascites (4) UTI (urinary tract infection) Problem: Acute Qualifiers: Urinary tract infection type: site unspecified Hematuria presence: with hematuria Qualified Code(s): N39.0 - Urinary tract infection, site not specified; R31.9 - Hematuria, unspecified (5) Hyperammonemia Problem: Acute (6) Hepatomegaly Problem: Acute (7) Elevated INR Problem: Acute
[2020-01-01] MEDS ORDERED: TEMAZEPAM 15 MG CAPSULE PO SCH (21:00)
[2020-01-02 06:26] LABS: Hematocrit 30.3 % (37.0-47.0); Hemoglobin 10.4 gm/dL (12.5-16.0); Mean Cell Volume 104.1 fl (78-100); Mean Corpuscular Hemoglobin 35.7 pg (27-31); Mean Corpuscular Hgb Conc 34.3 g/dl (32-36); Mean Platelet Volume 10.7 fl (8-12.5); Neutrophil # 7.3 K/mm3 (1.3-6.0); Neutrophil % 74.8 % (42-75.0); Platelet Count 131 K/mm3 (150-450); Red Blood Count 2.91 M/mm3 (4.2-5.4); Red Cell Distribution Width 19.5 % (11.5-14.0); White Blood Count 9.7 K/mm3 (4.0-10.5)
[2020-01-02 06:33] LABS: Prothrombin Time (Patient) 35.8 Seconds (9.1-10.7)
[2020-01-02 06:34] LABS: INR 3.81 INR (0.92-1.08)
[2020-01-02 06:39] LABS: Albumin * 2.1 gm/dl (3.4-5.0); Anion Gap 14.1 mmol/L (6.8-13.8); BUN/Creatinine Ratio 5.6 (9.0-21.6); Bilirubin, Total 17.9 mg/dL (0.0-1.1); Ca. Corrected For Albumin 9.8 mg/dL (8.4-10.2); Calcium * 8.6 mg/dL (7.9-10.9); Carbon Dioxide 22.1 mmol/L (24-32.6); Potassium 3.2 mmol/L (3.4-4.6); Total Protein 6.4 gm/dL (6.2-8.2)
[2020-01-02] MEDS: LEVOTHYROXINE SODIUM 75 MCG TABLET PO SCH (07:05)
[2020-01-02] MEDS: POTASSIUM CHLORIDE 20 MEQ TABLET.SA PO SCH ×2 (08:26→16:19)
[2020-01-02] MEDS: PSYLLIUM SEED 1 PACKET PACKET PO SCH ×2 (08:27→22:09)
[2020-01-02] MEDS: GABAPENTIN 300 MG CAPSULE PO SCH ×2 (08:27→22:07)
[2020-01-02] MEDS: metroNIDAZOLE 500 MG TABLET PO SCH ×2 (14:06→22:08)
[2020-01-02] MEDS: NICOTINE 14 MG PATC TD SCH (14:07)
[2020-01-02] MEDS: DIPHENOXYLATE HCL/ATROP SULF 2.5 MG TABLET PO SCH ×2 (16:25→22:15)
--- NOTE | 2020-01-02 17:10 | PN ---
Subjective - Date and Time Seen Date: 01/02/20 Time: 12:30 Subjective Narrative: Weston had a fair night. She gets awakened a lot for vital signs. She also gets awakened because of diarrhea. She did take a temazepam last night and thinks that she rested some better. She is up for a shower. So I elected to come back and see her later. Her vital signs have been stable. She remains afebrile. The skin is more icteric today. Lab: The transaminases show 1 to be normal and the other 1 to be less high than it has been. The alkaline phosphatase is also less. Unfortunately her bilirubin has gone up from 17.1-17.9. Her ammonia level has gone up from 44-66. I am still awaiting the hepatitis panels. And we are still waiting on a bed to open up at the [facility]. Her potassium has increased to 3.2. Even though she currently still has diarrhea I need to get that ammonia headed down and so she will start on lactulose. I will continue with potassium at 40 mEq twice daily. Recheck lab again tomorrow morning. Objective - Review of Systems Generalized/Overall Review: Reports: Weakness, Weight loss EENTM: Reports: No Symptoms Reported Respiratory: Reports: No Symptoms Reported Cardiac: Reports: No Symptoms Reported Abdominal: Reports: Other - Early satiety Musculoskeletal Complaints: Reports: Other - UTI symptoms have subsided Neurological: Reports: No Symptoms Reported Skin: Reports: No Symptoms Reported Endocrine: Reports: No Symptoms Reported Misc: All systems neg except as marked - Vitals Vitals: Last Vital Signs Temp 37.1 C 01/02/20 12:00 Pulse 113 H 01/02/20 12:00 Resp 17 01/02/20 12:00 BP 110/68 01/02/20 12:00 Pulse Ox 95 01/02/20 12:00 - Abnormal Lab Findings Abnormal Lab Findings: Abnormal Lab Results 01/02/20 01/02/20 01/02/20 Range/Units 06:20 06:20 06:20 RBC 2.91 L (4.2-5.4) M/mm3 Hgb 10.4 L (12.5-16.0) gm/dL Hct 30.3 L (37.0-47.0) % MCV 104.1 H (78-100) fl MCH 35.7 H (27-31) pg RDW 19.5 H (11.5-14.0) % Plt Count 131 L (150-450) K/mm3 Immature Gran % (Auto) 0.90 H (0.001-0.429) % Immature Gran # (Auto) 0.09 H (0.000-0.0310) K/mm3 Lymphocytes % 9.4 L (20-51) % Monocytes % 13.7 H (0.0-9) % Neutrophils # 7.3 H (1.3-6.0) K/mm3 Lymphocytes # 0.91 L (1.5-3.5) k/mm3 Monocytes # 1.3 H (0.0-1.0) k/mm3 PT 35.8 H (9.1-10.7) Seconds INR (Anticoag Therapy) 3.81 H (0.92-1.08) INR Potassium 3.2 L (3.4-4.6) mmol/L Carbon Dioxide 22.1 L (24-32.6) mmol/L Anion Gap 14.1 H (6.8-13.8) mmol/L BUN/Creatinine Ratio 5.6 L (9.0-21.6) Random Glucose 111 H (70-110) mg/dL Total Bilirubin 17.9 H (0.0-1.1) mg/dL AST 74 H (0-48) U/L Alkaline Phosphatase 315 H (50-170) U/L Ammonia (11-35) mcmol/L Albumin 2.1 L (3.4-5.0) gm/dl 01/02/20 Range/Units 06:20 RBC (4.2-5.4) M/mm3 Hgb (12.5-16.0) gm/dL Hct (37.0-47.0) % MCV (78-100) fl MCH (27-31) pg RDW (11.5-14.0) % Plt Count (150-450) K/mm3 Immature Gran % (Auto) (0.001-0.429) % Immature Gran # (Auto) (0.000-0.0310) K/mm3 Lymphocytes % (20-51) % Monocytes % (0.0-9) % Neutrophils # (1.3-6.0) K/mm3 Lymphocytes # (1.5-3.5) k/mm3 Monocytes # (0.0-1.0) k/mm3 PT (9.1-10.7) Seconds INR (Anticoag Therapy) (0.92-1.08) INR Potassium (3.4-4.6) mmol/L Carbon Dioxide (24-32.6) mmol/L Anion Gap (6.8-13.8) mmol/L BUN/Creatinine Ratio (9.0-21.6) Random Glucose (70-110) mg/dL Total Bilirubin (0.0-1.1) mg/dL AST (0-48) U/L Alkaline Phosphatase (50-170) U/L Ammonia 64.0 H (11-35) mcmol/L Albumin (3.4-5.0) gm/dl - Exam Constitutional: Present: Alert, Oriented x3, Cooperative, Well developed, Well nourished, No distress ENT Exam: Present: normal ENT inspection, hearing grossly normal, pharynx normal, TMs normal, other - Scleral icterus Neck: Present: non-tender, full range of motion, supple, normal inspection Breasts: Present: Exam deferred Respiratory: Present: chest non-tender, lungs clear, normal breath sounds, no respiratory distress, no accessory muscle use Cardiovascular/Chest: Present: normal peripheral pulses, regular rate, rhythm, no chest tenderness, no edema, no gallop, no JVD, no murmur Abdomen: Present: Normal bowel sounds, soft. 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 Add lactulose 2. Add Lomotil 3. Continue potassium chloride 40 mEq twice daily 4. Recheck lab in the morning including ammonia 5. Decrease vital signs to every 6 hours - Problems/Diagnosis (1) Abnormal LFTs Problem: Acute (2) Hypokalemia Problem: Acute (3) Hepatic cirrhosis Problem: Acute Qualifiers: Hepatic cirrhosis type: alcoholic cirrhosis Ascites presence: with ascites Qualified Code(s): K70.31 - Alcoholic cirrhosis of liver with ascites (4) UTI (urinary tract infection) Problem: Acute Qualifiers: Urinary tract infection type: site unspecified Hematuria presence: with hematuria Qualified Code(s): N39.0 - Urinary tract infection, site not specified; R31.9 - Hematuria, unspecified (5) Hyperammonemia Problem: Acute (6) Hepatomegaly Problem: Acute (7) Elevated INR Problem: Acute
[2020-01-02] MEDS ORDERED: LACTULOSE 10 G/15 ML SYRUP PO SCH (21:00)
[2020-01-02] MEDS: MIRTAZAPINE 15 MG TABLET PO SCH (22:15)
[2020-01-03] MEDS: metroNIDAZOLE 500 MG TABLET PO SCH ×3 (05:38→21:37)
[2020-01-03 06:33] LABS: Hematocrit 33.5 % (37.0-47.0); Hemoglobin 11.2 gm/dL (12.5-16.0); Mean Cell Volume 106.3 fl (78-100); Mean Corpuscular Hemoglobin 35.6 pg (27-31); Mean Corpuscular Hgb Conc 33.4 g/dl (32-36); Mean Platelet Volume 10.3 fl (8-12.5); Neutrophil # 6.7 K/mm3 (1.3-6.0); Neutrophil % 71.3 % (42-75.0); Platelet Count 162 K/mm3 (150-450); Red Blood Count 3.15 M/mm3 (4.2-5.4); White Blood Count 9.3 K/mm3 (4.0-10.5)
[2020-01-03 06:40] LABS: Albumin * 2.3 gm/dl (3.4-5.0); Anion Gap 12.7 mmol/L (6.8-13.8); BUN/Creatinine Ratio 4.6 (9.0-21.6); Bilirubin, Total 22.6 mg/dL (0.0-1.1); Ca. Corrected For Albumin 10.1 mg/dL (8.4-10.2); Calcium * 9.1 mg/dL (7.9-10.9); Carbon Dioxide 24.8 mmol/L (24-32.6); Potassium 3.5 mmol/L (3.4-4.6); Total Protein 7.1 gm/dL (6.2-8.2)
[2020-01-03] MEDS: LEVOTHYROXINE SODIUM 75 MCG TABLET PO SCH (07:04)
[2020-01-03] MEDS: LACTULOSE 10 G/15 ML SYRUP PO SCH (08:28)
[2020-01-03] MEDS: POTASSIUM CHLORIDE 20 MEQ TABLET.SA PO SCH ×2 (08:29→16:42)
[2020-01-03] MEDS: PSYLLIUM SEED 1 PACKET PACKET PO SCH ×2 (08:29→20:07)
[2020-01-03] MEDS: GABAPENTIN 300 MG CAPSULE PO SCH ×2 (08:30→20:08)
[2020-01-03] MEDS: DIPHENOXYLATE HCL/ATROP SULF 2.5 MG TABLET PO SCH ×4 (08:33→20:12)
[2020-01-03] MEDS ORDERED: ALBUMIN HUMAN 12.5 G/50 ML BTL IV SCH (10:39)
[2020-01-03] MEDS ORDERED: PHYTONADIONE 1 MG/0.5 ML SYRG IM SCH (12:00)
[2020-01-03] MEDS: ALBUMIN HUMAN IV ONE ×3 (13:36→15:30)
[2020-01-03] MEDS: PHYTONADIONE (VIT K1) 10 MG/ML AMPUL IM SCH (14:03)
[2020-01-03] MEDS: NICOTINE 14 MG PATC TD SCH (14:23)
--- NOTE | 2020-01-03 17:32 | PN ---
Subjective - Date and Time Seen Date: 01/03/20 Time: 09:30 Subjective Narrative: Jessica is feeling pretty good today. She did not sleep well last night with the mirtazapine. She slept much better with the temazepam but she should not take that very often because of her liver status. Lab: The a LT has dropped to 71 and the AST remains normal. The alkaline phosphatase has dropped one-point to 353 and essentially is unchanged from yesterday. The bilirubin has increased to 22. The INR has jumped up to 3.4. The albumin is increased slightly to 2.5 from 2.3. The ammonia is in normal reference range at 31 down from 66 yesterday since starting lactulose. The CBC is essentially unchanged. White count is normal. Urine culture results have grown out E. coli sensitive to ceftriaxone which she is getting at this time. Stool cultures were no growth and the C. difficile screen was negative. The hepatitis B and C panels are nonreactive. I spoke with a vocational coordinator, Dr. Mirza, at the [facility]. He recommended starting on albumin and to give 50 g IV today and 50 g IV tomorrow. He also recommended starting on vitamin K 5000 units IV but we do not do intravenous vitamin K here so it will be given IM. It will be given daily for 3 days. He recommended a paracentesis which cannot be done here because of her high INR. The max INR is 1.5. He also recommended and I have ordered a phosphatidyl ethanol (PETH). He is of the opinion that she has probably had another alcoholic hepatitis event. Jessica says that she has been sober for [address] Mirza says that the PETH study will tell us whether she has been drinking lately or not. I have reviewed everything with Jessica again today to let her know her progress and the recommendations of Dr. Mirza to quit she is in agreement. She does not want to do a paracentesis because has been painful in the past. We have reassured her that it will not be done this weekend because of her INR status. We are still waiting on a transfer bed to the [facility] for her. Objective - Review of Systems Generalized/Overall Review: Reports: Weakness, Malaise, Weight loss EENTM: Reports: No Symptoms Reported Respiratory: Reports: No Symptoms Reported Cardiac: Reports: No Symptoms Reported Abdominal: Reports: Other - Early satiety and anorexia Genitourinary Symptoms: Reports: No Symptoms Reported Musculoskeletal Complaints: Reports: No Symptoms Reported Neurological: Reports: No Symptoms Reported, Weakness Skin: Reports: Change in Color - Cutaneous icterus - Vitals Vitals: Last Vital Signs Temp 37.3 C 01/03/20 15:30 Pulse 104 H 01/03/20 15:30 Resp 18 01/03/20 15:30 BP 97/63 01/03/20 15:30 Pulse Ox 98 01/03/20 15:30 - Abnormal Lab Findings Abnormal Lab Findings: Abnormal Lab Results 01/03/20 01/03/20 Range/Units 06:24 06:24 RBC 3.15 L (4.2-5.4) M/mm3 Hgb 11.2 L (12.5-16.0) gm/dL Hct 33.5 L (37.0-47.0) % MCV 106.3 H (78-100) fl MCH 35.6 H (27-31) pg RDW 21.0 H (11.5-14.0) % Immature Gran % (Auto) 1.60 H (0.001-0.429) % Immature Gran # (Auto) 0.15 H (0.000-0.0310) K/mm3 Lymphocytes % 10.0 L (20-51) % Monocytes % 15.5 H (0.0-9) % Neutrophils # 6.7 H (1.3-6.0) K/mm3 Lymphocytes # 0.93 L (1.5-3.5) k/mm3 Monocytes # 1.4 H (0.0-1.0) k/mm3 BUN/Creatinine Ratio 4.6 L (9.0-21.6) Total Bilirubin 22.6 H* (0.0-1.1) mg/dL AST 71 H (0-48) U/L Alkaline Phosphatase 314 H (50-170) U/L Albumin 2.3 L (3.4-5.0) gm/dl - Exam Constitutional: Present: Alert, Oriented x3, Cooperative, Well developed, Well nourished, No distress ENT Exam: Present: normal ENT inspection, hearing grossly normal, pharynx normal, TMs normal Neck: Present: non-tender, full range of motion, supple, normal inspection Breasts: Present: Exam deferred Respiratory: Present: chest non-tender, lungs clear, normal breath sounds, no respiratory distress, no accessory muscle use Cardiovascular/Chest: Present: normal peripheral pulses, regular rate, rhythm, no chest tenderness, no edema, no gallop, no JVD, no murmur, no rub Abdomen: Present: Normal bowel sounds, soft, nontender, nondistended, no rebound tenderness, no hepatospenomegaly, no masses /Rectal: Present: Exam deferred Extremity: Present: normal range of motion, non-tender, normal inspection, no pedal edema, no calf tenderness, normal capillary refill Skin Exam: Present: normal color, warm/dry, no cyanosis Lymphatic: Present: no adenopathy Neurologic: Present: 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 CBC, CMP, PT and INR, ammonia level tomorrow morning 2. Start albumin 50 g daily x2 days IV 3. Start vitamin K 5 mg IM daily x3 days 4. Ordered phosphatidyl ethanol 5. I spoke with Dr. Mirza about 20 minutes today and spoke with Dr. Fleming about 10 minutes a day. 6. Transfer to the [facility] once they have a bed available. - Problems/Diagnosis (1) Abnormal LFTs Problem: Acute (2) Hypokalemia Problem: Acute (3) Hepatic cirrhosis Problem: Acute Qualifiers: Hepatic cirrhosis type: alcoholic cirrhosis Ascites presence: with ascites Qualified Code(s): K70.31 - Alcoholic cirrhosis of liver with ascites (4) UTI (urinary tract infection) Problem: Acute Qualifiers: Urinary tract infection type: site unspecified Hematuria presence: with hematuria Qualified Code(s): N39.0 - Urinary tract infection, site not specified; R31.9 - Hematuria, unspecified (5) Hyperammonemia Problem: Acute (6) Hepatomegaly Problem: Acute (7) Elevated INR Problem: Acute
[2020-01-03] MEDS: MIRTAZAPINE 15 MG TABLET PO SCH (20:07)
[2020-01-04] MEDS: metroNIDAZOLE 500 MG TABLET PO SCH ×3 (05:24→22:09)
[2020-01-04] MEDS: LEVOTHYROXINE SODIUM 75 MCG TABLET PO SCH (07:36)
[2020-01-04] MEDS: PSYLLIUM SEED 1 PACKET PACKET PO SCH ×2 (08:11→20:22)
[2020-01-04] MEDS: LACTULOSE 10 G/15 ML SYRUP PO SCH (08:11)
[2020-01-04] MEDS: GABAPENTIN 300 MG CAPSULE PO SCH ×2 (08:13→20:25)
[2020-01-04] MEDS: POTASSIUM CHLORIDE 20 MEQ TABLET.SA PO SCH ×2 (08:13→16:32)
[2020-01-04] MEDS: PHYTONADIONE (VIT K1) 10 MG/ML AMPUL IM SCH (08:15)
[2020-01-04] MEDS: DIPHENOXYLATE HCL/ATROP SULF 2.5 MG TABLET PO SCH ×4 (08:44→20:29)
[2020-01-04] MEDS ORDERED: ALBUMIN HUMAN IV SCH (09:00)
--- NOTE | 2020-01-04 10:09 | PN ---
Subjective - Date and Time Seen Date: 01/04/20 Time: 10:07 Subjective Narrative: Very pleasant individual here due to likely alcoholic cirrhosis event. Patient currently receiving albumin and vitamin K. Awaiting paracentesis. INR was 3.4 yesterday, once 1.5 paresthesias can order. Her vital signs of been stable though she is still slightly tachycardic, has been since she arrived. Otherwise stable. She has no concerns today and states she feels well. Microbiology came back growing E. coli in her urine, currently on ceftriaxone which is sensitive to. We will continue this antibiotic. Patient awaiting transfer to the [facility] Objective - Review of Systems Generalized/Overall Review: Reports: No Symptoms Reported EENTM: Reports: No Symptoms Reported Respiratory: Denies: Cough, Shortness of Breath Cardiac: Denies: Chest Pain, Edema, Palpitations Abdominal: Reports: Other - enlarged. Denies: Nausea, Vomiting Genitourinary Symptoms: Reports: No Symptoms Reported Musculoskeletal Complaints: Reports: No Symptoms Reported Neurological: Reports: No Symptoms Reported Skin: Reports: No Symptoms Reported - Vitals Vitals: Last Vital Signs Temp 37.3 C 01/04/20 05:28 Pulse 114 H 01/04/20 02:18 Resp 16 01/04/20 02:18 BP 108/58 01/04/20 02:18 Pulse Ox 96 01/04/20 02:18 - Exam Constitutional: Present: Alert, Oriented x3, No distress Neck: Present: non-tender, supple Respiratory: Present: lungs clear, normal breath sounds Cardiovascular/Chest: Present: regular rate, rhythm, no murmur Abdomen: Present: soft, nontender, distended - +fluid wave Extremity: Present: non-tender. Absent: lower extremity edema Skin Exam: Present: normal color, warm/dry, other - telangiectasia on chest Appearance: Present: appropriate appearance, appropriate insight Thoughts: Present: normal thought pattern, normal mood /affect Assessment/Plan Plan Narrative: Patient comfortable today. No concerns and her vitals are stable. Repeat CMP, INR pending. Continue lactulose for elevated ammonia. She is currently being given Albumin. Continue with Vit K IM. Awaiting placement. Nurse to call with questions or concerns. - Problems/Diagnosis (1) Ascites Problem: Acute Qualifiers: Ascites type: other type Qualified Code(s): R18.8 - Other ascites (2) Acute on chronic alcoholic liver disease Problem: Acute (3) Hypokalemia Problem: Acute (4) Hepatic cirrhosis Problem: Acute Qualifiers: Hepatic cirrhosis type: alcoholic cirrhosis Ascites presence: with ascites Qualified Code(s): K70.31 - Alcoholic cirrhosis of liver with ascites (5) Hyperammonemia Problem: Acute (6) Elevated INR Problem: Acute
[2020-01-04 10:58] LABS: Hematocrit 29.1 % (37.0-47.0); Hemoglobin 9.8 gm/dL (12.5-16.0); Mean Cell Volume 106.2 fl (78-100); Mean Corpuscular Hemoglobin 35.8 pg (27-31); Mean Corpuscular Hgb Conc 33.7 g/dl (32-36); Mean Platelet Volume 10.1 fl (8-12.5); Neutrophil % 71.6 % (42-75.0); Platelet Count 167 K/mm3 (150-450); Red Blood Count 2.74 M/mm3 (4.2-5.4); Red Cell Distribution Width 21.5 % (11.5-14.0); White Blood Count 9.8 K/mm3 (4.0-10.5)
[2020-01-04 11:07] LABS: Prothrombin Time (Patient) 34.4 Seconds (9.1-10.7)
[2020-01-04 11:14] LABS: INR 3.65 INR (0.92-1.08)
[2020-01-04 11:26] LABS: Albumin * 2.8 gm/dl (3.4-5.0); Anion Gap 16.6 mmol/L (6.8-13.8); BUN/Creatinine Ratio 6.3 (9.0-21.6); Bilirubin, Total 23.9 mg/dL (0.0-1.1); Ca. Corrected For Albumin 9.4 mg/dL (8.4-10.2); Calcium * 8.8 mg/dL (7.9-10.9); Potassium 3.6 mmol/L (3.4-4.6); Total Protein 6.5 gm/dL (6.2-8.2)
[2020-01-04] MEDS: NICOTINE 14 MG PATC TD SCH (14:02)
[2020-01-04] MEDS: MIRTAZAPINE 15 MG TABLET PO SCH (20:26)
[2020-01-05] MEDS: hydrOXYzine HCL 25 MG TABLET PO ONE ×2 (00:51→09:45)
[2020-01-05] MEDS: metroNIDAZOLE 500 MG TABLET PO SCH ×3 (05:18→21:43)
[2020-01-05] MEDS: LACTULOSE 10 G/15 ML SYRUP PO SCH (09:20)
[2020-01-05] MEDS: POTASSIUM CHLORIDE 20 MEQ TABLET.SA PO SCH ×2 (09:21→16:36)
[2020-01-05] MEDS: PSYLLIUM SEED 1 PACKET PACKET PO SCH ×2 (09:22→20:16)
[2020-01-05] MEDS: GABAPENTIN 300 MG CAPSULE PO SCH ×2 (09:22→20:17)
[2020-01-05] MEDS: DIPHENOXYLATE HCL/ATROP SULF 2.5 MG TABLET PO SCH ×4 (09:26→20:22)
[2020-01-05 09:29] LABS: Prothrombin Time (Patient) 27.1 Seconds (9.1-10.7)
[2020-01-05 09:33] LABS: INR 2.85 INR (0.92-1.08)
[2020-01-05 09:43] LABS: Albumin * 2.8 gm/dl (3.4-5.0); Anion Gap 17.8 mmol/L (6.8-13.8); BUN/Creatinine Ratio 6.8 (9.0-21.6); Ca. Corrected For Albumin 9.6 mg/dL (8.4-10.2); Carbon Dioxide 18.1 mmol/L (24-32.6); Potassium 3.9 mmol/L (3.4-4.6); Total Protein 6.5 gm/dL (6.2-8.2)
[2020-01-05 09:49] LABS: Bilirubin, Total 27.7 mg/dL (0.0-1.1)
[2020-01-05] MEDS ORDERED: PHYTONADIONE (VIT K1) 10 MG/ML AMPUL IM ONE (10:00)
[2020-01-05] MEDS: IBUPROFEN 600 MG TABLET PO PRN (10:42)
[2020-01-05] MEDS: NICOTINE 14 MG PATC TD SCH (14:48)
[2020-01-05] MEDS: MIRTAZAPINE 15 MG TABLET PO SCH (20:17)
--- NOTE | 2020-01-05 22:41 | PN ---
Subjective - Date and Time Seen Date: 01/05/20 Time: 10:35 Subjective Narrative: Patient is comfortable though slightly restless as she does not like staying here. Still waiting on placement at the . Her labs have improved but INR still elevated, another dose of Vit K will be administered. She was mildly febrile today, not abdominal pain/nausea/vomiting. Stomach still ascitic. Rest of her vitals are stable. Objective - Review of Systems Generalized/Overall Review: Reports: Fever. Denies: Weakness, Chills EENTM: Reports: No Symptoms Reported Respiratory: Reports: No Symptoms Reported Cardiac: Reports: No Symptoms Reported Abdominal: Reports: Other - distended. Denies: Nausea, Vomiting, Abdominal Pain Musculoskeletal Complaints: Reports: No Symptoms Reported Neurological: Reports: No Symptoms Reported Skin: Reports: No Symptoms Reported Endocrine: Reports: No Symptoms Reported - Vitals Vitals: Last Vital Signs Temp 36.5 C 01/05/20 21:54 Pulse 94 01/05/20 21:54 Resp 20 01/05/20 21:54 BP 102/61 01/05/20 21:54 Pulse Ox 98 01/05/20 21:54 - Abnormal Lab Findings Abnormal Lab Findings: Abnormal Lab Results 01/05/20 01/05/20 01/05/20 Range/Units 09:05 09:05 09:08 PT 27.1 H (9.1-10.7) Seconds INR (Anticoag Therapy) 2.85 H (0.92-1.08) INR Carbon Dioxide 18.1 L (24-32.6) mmol/L Anion Gap 17.8 H (6.8-13.8) mmol/L BUN/Creatinine Ratio 6.8 L (9.0-21.6) Random Glucose 155 H D (70-110) mg/dL Total Bilirubin 27.7 H* (0.0-1.1) mg/dL AST 63 H (0-48) U/L ALT 11 L (19-67) U/L Alkaline Phosphatase 208 H (50-170) U/L Ammonia 39.0 H (11-35) mcmol/L Albumin 2.8 L (3.4-5.0) gm/dl - Exam Constitutional: Present: Alert, Oriented x3, Cooperative, Mild distress - anxious due to stomach condition ENT Exam: Present: hearing grossly normal Neck: Present: non-tender, supple, trachea midline Respiratory: Present: lungs clear, normal breath sounds Cardiovascular/Chest: Present: regular rate, rhythm, no murmur Abdomen: Present: nontender, distended - +fluid wave Extremity: Present: non-tender, no pedal edema Skin Exam: Present: normal color, warm/dry Eye contact: Present: cooperative, good eye contact Thoughts: Present: normal thought pattern, normal mood /affect Assessment/Plan Plan Narrative: Patient waiting for placement at the [place]. Nursing staff looking to place her somewhere else as she has gotten a little anxious but there is no clear indicator to transfer her right now, advised that she wait for a bed so she can go see her physicians at the . Another dose of Vit K ordered for today as INR still elevated. Paracentesis needed but INR must be under 1.50 Continue Lactulose, ammonia unchanged from yesterday. IBU ordered for short term use to help with fever. No abdominal pain/nausea. No signs of SBP. Other vitals are stable. Continue current tx plan. Nurse to call with questions or concerns. - Problems/Diagnosis (1) Ascites Problem: Acute Qualifiers: Ascites type: other type Qualified Code(s): R18.8 - Other ascites (2) Acute on chronic alcoholic liver disease Problem: Acute (3) Hypokalemia Problem: Acute (4) Hepatic cirrhosis Problem: Acute Qualifiers: Hepatic cirrhosis type: alcoholic cirrhosis Ascites presence: with ascites Qualified Code(s): K70.31 - Alcoholic cirrhosis of liver with ascites (5) Hyperammonemia Problem: Acute (6) Elevated INR Problem: Acute
[2020-01-06] MEDS: metroNIDAZOLE 500 MG TABLET PO SCH ×3 (04:54→21:01)
[2020-01-06 07:23] LABS: Hematocrit 31.4 % (37.0-47.0); Hemoglobin 10.5 gm/dL (12.5-16.0); Mean Cell Volume 108.3 fl (78-100); Mean Corpuscular Hemoglobin 36.2 pg (27-31); Mean Corpuscular Hgb Conc 33.4 g/dl (32-36); Mean Platelet Volume 10.2 fl (8-12.5); Platelet Count 227 K/mm3 (150-450); Red Cell Distribution Width 21.8 % (11.5-14.0); White Blood Count 11.6 K/mm3 (4.0-10.5)
[2020-01-06 07:26] LABS: Prothrombin Time (Patient) 22.5 Seconds (9.1-10.7)
[2020-01-06 07:27] LABS: INR 2.35 INR (0.92-1.08)
[2020-01-06 07:37] LABS: Total Cells Counted 100
[2020-01-06] MEDS: LEVOTHYROXINE SODIUM 75 MCG TABLET PO SCH (07:38)
[2020-01-06 07:39] LABS: Albumin * 2.6 gm/dl (3.4-5.0); Anion Gap 15.5 mmol/L (6.8-13.8); BUN/Creatinine Ratio 8.7 (9.0-21.6); Ca. Corrected For Albumin 9.3 mg/dL (8.4-10.2); Calcium * 8.5 mg/dL (7.9-10.9); Carbon Dioxide 20.8 mmol/L (24-32.6); Potassium 4.3 mmol/L (3.4-4.6); Total Protein 6.4 gm/dL (6.2-8.2)
[2020-01-06 07:53] LABS: Bilirubin, Total 31.7 mg/dL (0.0-1.1)
[2020-01-06] MEDS: PSYLLIUM SEED 1 PACKET PACKET PO SCH ×2 (08:39→21:00)
[2020-01-06] MEDS: GABAPENTIN 300 MG CAPSULE PO SCH ×2 (08:40→21:01)
[2020-01-06] MEDS: LACTULOSE 10 G/15 ML SYRUP PO SCH (08:40)
[2020-01-06] MEDS: POTASSIUM CHLORIDE 20 MEQ TABLET.SA PO SCH ×2 (08:40→17:35)
[2020-01-06] MEDS: DIPHENOXYLATE HCL/ATROP SULF 2.5 MG TABLET PO SCH ×4 (08:42→21:00)
[2020-01-06 08:52] LABS: Atypical (Reactive) Lymph 2 % (0-2); Band 1 % (0-2.0); Eosinophil 1 % (0-3); Lymphocyte 7 % (20-51); Monocyte 15 % (0-9); Neutrophil 74 % (42-75); Neutrophil # 8.6 K/mm3 (1.3-6.0)
[2020-01-06 08:54] LABS: Anisocytosis Trace; Platelet Estimate Normal (NORMAL); Poikilocytosis Trace
--- NOTE | 2020-01-06 13:33 | DS ---
Transfer Discharge Summary - Diagnosis(s)/Problems (1) Abnormal LFTs Problem: Acute (2) Hypokalemia Problem: Acute (3) Hepatic cirrhosis Problem: Acute (4) UTI (urinary tract infection) Problem: Acute (5) Hyperammonemia Problem: Acute (6) Hepatomegaly Problem: Acute (7) Elevated INR Problem: Acute (8) Hyperbilirubinemia Problem: Acute - Course Description of Stay: This is a 49-year-old female patient with no local primary care physician but who has been admitted to our hospital previously for hepatitis and liver failure. For the past 2 months she has been having diarrhea and having multiple liquid stools every day and sometimes at night. She has been seen at the GI clinic at the [place] but it has been quite a while and apparently she is in lost to follow-up. This visit she is afebrile and denies pain anywhere. Work-up in the emergency room shows liver failure with the ALT being normal but the AST being 5 times upper limit of normal at 256. Alkaline phosphatase is greater than 500. The bilirubin is greater than 12. Urinalysis reflects spillage of a large amount of bilirubin in the urine. CT scan of the abdomen shows the liver is enlarged measuring 28 cm and it is nodular and cirrhotic in appearance. There is cholelithiasis present. No evidence of acute cholecystitis. The common bile duct was not discussed on the CT report but would be better evaluated by ultrasound anyway. Tonight she reports that she is hungry. She had an episode of dry heaves this morning when she gagged herself with her toothbrush but aside from that has not had any vomiting. She has had bright red blood on tissue when wiping after stooling. This is her main concern. Strikingly she does not appear jaundiced or icteric with this high of a bilirubin. The liver is palpably enlarged but not particularly tender to palpation. The CT shows a small amount of pelvic fluid which is probably ascites but there is no large amount of ascites. And her succussion splash is negative. There is no peripheral edema. She denies diabetes or history of the same however her random blood sugar admission to ER was 167. Social history entered by the nurse says she never has been an alcohol drinker. A previous diagnoses suggested alcoholic cirrhosis of the liver. 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 During her stay her transaminases have actually improved. Alkaline phosphatase has fallen considerably from 500s to 300s. The bilirubin has consistently climbed however and is 31.7 today. The INR was climbing and reached 3.4. She was given albumin and vitamin K and the INR is around 2.5 now. Her ammonia level climbed into the upper 60s. She was started on lactulose which dropped the ammonia to normal the next day. I reduce the lactulose to once a day. It bumped up slightly into the 50s and then has dropped back down again today to <17. She of course has a lot of cutaneous icterus and scleral icterus. 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 She is not having dark-colored urine now like she was when she was admitted. Her albumin was low at 2.2. She was started on Ensure 4 times a day between meals and bedtime and was given some IV albumin 50 g daily x2 days. She tolerated this well. At this time she is ambulatory and does not feel too badly but the liver remains very swollen. Hepatitis studies all came back negative. I did not do hepatitis A since the transaminases were so low. She did spike a fever yesterday but is afebrile today. Etiology is uncertain. She had a urinary tract infection on admission and that has been treated with ceftriaxone. She had some leukocytes in her stool but cultures were negavitive. Empirically I have started her on Metronidazole 250mg daily for 7 days (on day 5 today). The remaining concerns are her very swollen liver which is causing the rising INR and rising bilirubin levels. She needs to be transferred to a tertiary facility where they have hepatology. We have been trying to transfer her to the [place] for over a week and they have not been able to accommodate her admission. Therefore, she will be transferred to [facility] in [place], [place]. I have spoken with Dr. Vazquez and he has agreed to accept her in transfer and the transfer center reports they have beds available. Procedures Performed: none - Results and Findings Results and Findings: Laboratory Results - last 24 hr 01/06/20 01/06/20 01/06/20 07:14 07:14 07:14 WBC 11.6 H RBC 2.90 L Hgb 10.5 L Hct 31.4 L MCV 108.3 H MCH 36.2 H MCHC 33.4 RDW 21.8 H Plt Count 227 MPV 10.2 Neutrophils % (Manual) 74 Band Neuts % (Manual) 1 Lymphocytes % (Manual) 7 L Monocytes % (Manual) 15 H Eosinophils % (Manual) 1 Neutrophils # (Manual) 8.6 H Lymphocytes # (Manual) 0.8 L Monocytes # (Manual) 1.7 H Eosinophils # (Manual) 0.1 Atypic/Reactive Lymphs 2 Platelet Estimate Normal Poikilocytosis Trace Anisocytosis Trace PT 22.5 H INR (Anticoag Therapy) 2.35 H Sodium 134 Plasma Sodium 134 Potassium 4.3 Chloride 102 Carbon Dioxide 20.8 L Anion Gap 15.5 H BUN 8 Creatinine 0.92 Est GFR (Non-Af Amer) 69 BUN/Creatinine Ratio 8.7 L Random Glucose 88 D Calcium 8.5 Calcium Adj for Albumin 9.3 Total Bilirubin 31.7 H* AST 58 H ALT 11 L Alkaline Phosphatase 204 H Ammonia Total Protein 6.4 Albumin 2.6 L SARS-CoV-2 (PCR) 01/06/20 01/06/20 07:14 10:00 WBC RBC Hgb Hct MCV MCH MCHC RDW Plt Count MPV Neutrophils % (Manual) Band Neuts % (Manual) Lymphocytes % (Manual) Monocytes % (Manual) Eosinophils % (Manual) Neutrophils # (Manual) Lymphocytes # (Manual) Monocytes # (Manual) Eosinophils # (Manual) Atypic/Reactive Lymphs Platelet Estimate Poikilocytosis Anisocytosis PT INR (Anticoag Therapy) Sodium Plasma Sodium Potassium Chloride Carbon Dioxide Anion Gap BUN Creatinine Est GFR (Non-Af Amer) BUN/Creatinine Ratio Random Glucose Calcium Calcium Adj for Albumin Total Bilirubin AST ALT Alkaline Phosphatase Ammonia Less than 17.0 Total Protein Albumin SARS-CoV-2 (PCR) Not detected - Medications Medications: Active Medications Diphenoxylate HCl/Atropine (Lomotil) 2.5 mg PO QID MARI Stop: 02/01/20 17:01 Last Admin: 01/06/20 08:42 Dose: 2.5 mg Documented by: Furosemide (Lasix) 20 mg PO DAILY MARI Stop: 01/30/20 09:01 Last Admin: 12/31/19 08:18 Dose: 20 mg Documented by: Gabapentin (Neurontin) 300 mg PO BID MARI Stop: 01/29/20 21:01 Last Admin: 01/06/20 08:40 Dose: 300 mg Documented by: Ceftriaxone Sodium 1,000 mg/ (Dextrose/Water) 100 mls @ 200 mls/hr IV Q24H [facility]; Protocol Stop: 01/30/20 16:01 Last Infusion: 01/05/20 16:59 Dose: Infused Documented by: Ibuprofen (Motrin) 600 mg PO Q6H PRN PRN Reason: Fever Stop: 02/04/20 10:35 Last Admin: 01/05/20 10:42 Dose: 600 mg Documented by: Lactulose (Enulose) 10 g PO DAILY [facility] Stop: 02/02/20 09:01 Last Admin: 01/06/20 08:40 Dose: 10 g Documented by: Levothyroxine Sodium (Synthroid) 75 mcg PO [id number] [facility] Stop: 01/30/20 07:01 Last Admin: 01/06/20 07:38 Dose: 75 mcg Documented by: Metronidazole (Flagyl) 250 mg PO Q8H [facility]; Protocol Stop: 02/02/20 13:46 Last Admin: 01/06/20 04:54 Dose: 250 mg Documented by: Mirtazapine (Remeron) 30 mg PO HS [facility] Stop: 02/01/20 21:01 Last Admin: 01/05/20 20:17 Dose: 30 mg Documented by: Nicotine (Nicoderm) 14 mg TD Q24H [facility] Stop: 01/30/20 15:01 Last Admin: 01/05/20 14:48 Dose: 14 mg Documented by: Potassium Chloride (K-Dur) 40 meq PO BIDWM [facility] Stop: 01/30/20 12:39 Last Admin: 01/06/20 08:40 Dose: 40 meq Documented by: Psyllium Hydrophilic Mucilloid (Metamucil) 2 each PO BID [facility] Stop: 01/31/20 21:01 Last Admin: 01/06/20 08:39 Dose: 1 each Documented by: Discontinued Medications Diatrizoate Meglum/Diatrizoate Sod (Gastrografin Solution) 60 ml PO ONCE ONE Stop: 12/30/19 11:22 Last Admin: 12/30/19 11:45 Dose: 60 ml Documented by: Hydroxyzine HCl (Atarax) 25 mg PO ONCE ONE Stop: 01/05/20 01:01 [employer] Last Admin: 01/05/20 09:45 Dose: Not Given Documented by: Sodium Chloride (Sodium Chloride 0.9%) 1,000 mls @ 125 mls/hr IV .Q8H ONE Stop: 12/30/19 19:20 Last Infusion: 12/30/19 19:51 Dose: Infused Documented by: Potassium Chloride/Water (Kcl 10 Meq/100 Ml Piggyback) 100 mls @ 100 mls/hr IV ONCE ONE Stop: 12/30/19 12:20 Last Infusion: 12/30/19 13:16 Dose: Infused Documented by: Ceftriaxone Sodium (Rocephin 1000 Mg Er Piggyback) 1,000 mg in 100 mls @ 200 mls/hr IV ONCE ONE Stop: 12/30/19 16:49 Last Infusion: 12/30/19 17:02 Dose: Infused Documented by: Ceftriaxone Sodium 1,000 mg/ (Dextrose/Water) 100 mls @ 200 mls/hr IV Q24H [facility]; Protocol Stop: 01/29/20 19:46 Last Admin: 12/30/19 23:21 Dose: Not Given Documented by: Albumin Human (Albuminar-25) 12.5 g in 50 mls @ 50 mls/hr IV DAILY [facility] Stop: 01/04/20 09:59 Last Infusion: 01/03/20 14:12 Dose: Infused Documented by: Albumin Human (Albuminar-25) 37.5 g in 150 mls @ 50 mls/hr IV ONCE ONE Stop: 01/03/20 16:29 Last Infusion: 01/03/20 16:36 Dose: Infused Documented by: Albumin Human (Albuminar-25) 50 g in 200 mls @ 50 mls/hr IV DAILY [facility] Stop: 01/04/20 12:59 Last Infusion: 01/04/20 12:32 Dose: Infused Documented by: Lactulose (Enulose) 10 g PO BID [facility] Stop: 02/01/20 21:01 Last Admin: 01/02/20 22:06 Dose: 10 g Documented by: Levothyroxine Sodium (Synthroid) 75 mcg PO MOTUWETHFRSA [facility]I Stop: 01/29/20 19:31 Last Admin: 12/30/19 21:28 Dose: 75 mcg Documented by: Metronidazole (Flagyl) 500 mg PO ONCE ONE; Protocol Stop: 12/30/19 19:39 Last Admin: 12/30/19 21:28 Dose: 500 mg Documented by: Metronidazole (Flagyl) 500 mg PO Q8H [facility]; Protocol Stop: 02/01/20 13:46 Last Admin: 01/03/20 05:38 Dose: 500 mg Documented by: Ondansetron HCl (Zofran) 8 mg IV ONCE ONE Stop: 12/30/19 11:51 Last Admin: 12/30/19 11:51 Dose: 8 mg Documented by: Phytonadione (Aqua-Mephyton) 5 mg IM DAILY [facility] Stop: 01/05/20 09:01 Last Admin: 01/03/20 12:50 Dose: 5 mg Documented by: Phytonadione (Vitamin K) 5 mg IM DAILY [facility] Stop: 01/04/20 09:01 Last Admin: 01/04/20 08:15 Dose: 5 mg Documented by: Phytonadione (Vitamin K) 10 mg IM ONCE ONE Stop: 01/05/20 10:01 Last Admin: 01/05/20 10:43 Dose: 10 mg Documented by: Potassium Chloride (K-Dur) 20 meq PO BIDWM [facility] Stop: 01/29/20 21:01 Last Admin: 12/31/19 08:18 Dose: 20 meq Documented by: Potassium Chloride (Klor-Con 10) 40 meq PO BIDWM [facility] Stop: 01/30/20 12:39 Last Admin: 12/31/19 13:22 Dose: Not Given Documented by: Psyllium Hydrophilic Mucilloid (Metamucil) 1 each PO BID [facility] Stop: 01/29/20 21:01 Last Admin: 01/01/20 09:17 Dose: 1 each Documented by: Temazepam (Restoril) 30 mg PO HS [facility] Stop: 01/31/20 21:01 Last Admin: 01/01/20 20:44 Dose: 30 mg Documented by: - Disposition Disposition: Short Term Hospital Inpatient Condition: Fair Discharge Date: 01/06/20 Discharge Time: 13:32
[2020-01-06] MEDS ORDERED: DEXTROSE 5%-0.5 NORMAL SALINE 1,000 ML IV PRN (13:34)
[2020-01-06] MEDS: NICOTINE 14 MG PATC TD SCH (14:14)
[2020-01-06] MEDS: IBUPROFEN 600 MG TABLET PO PRN (18:26)
[2020-01-06] MEDS: MIRTAZAPINE 15 MG TABLET PO SCH (21:08)
[2020-01-07] MEDS: metroNIDAZOLE 500 MG TABLET PO SCH (05:35)
[2020-01-07] MEDS: LEVOTHYROXINE SODIUM 75 MCG TABLET PO SCH (06:38)
[2020-01-07 07:48] LABS: Hematocrit 32.7 % (37.0-47.0); Hemoglobin 10.7 gm/dL (12.5-16.0); Mean Cell Volume 110.1 fl (78-100); Mean Corpuscular Hgb Conc 32.7 g/dl (32-36); Mean Platelet Volume 9.9 fl (8-12.5); Platelet Count 237 K/mm3 (150-450); Red Blood Count 2.97 M/mm3 (4.2-5.4); Red Cell Distribution Width 22.1 % (11.5-14.0); White Blood Count 14.4 K/mm3 (4.0-10.5)
[2020-01-07 07:50] LABS: Total Cells Counted 100
[2020-01-07 07:56] LABS: Prothrombin Time (Patient) 19.6 Seconds (9.1-10.7)
[2020-01-07 07:59] LABS: INR 2.03 INR (0.92-1.08)
[2020-01-07 08:00] LABS: Band 2 % (0-2.0); Immature Granulocyte 1 (0-1); Lymphocyte 9 % (20-51); Monocyte 7 % (0-9); Neutrophil 81 % (42-75); Neutrophil # 11.7 K/mm3 (1.3-6.0)
[2020-01-07 08:01] LABS: Anisocytosis 1+; Platelet Estimate Normal (NORMAL); Target Cells 1+
[2020-01-07 08:10] LABS: Albumin * 2.6 gm/dl (3.4-5.0); Anion Gap 15.5 mmol/L (6.8-13.8); BUN/Creatinine Ratio 9.4 (9.0-21.6); Ca. Corrected For Albumin 9.6 mg/dL (8.4-10.2); Calcium * 8.8 mg/dL (7.9-10.9); Carbon Dioxide 20.3 mmol/L (24-32.6); Potassium 4.8 mmol/L (3.4-4.6); Total Protein 6.5 gm/dL (6.2-8.2)
[2020-01-07 08:42] LABS: Bilirubin, Total 36.8 mg/dL (0.0-1.1)
[2020-01-07] MEDS: FUROSEMIDE 20 MG TABLET PO SCH (09:13)
[2020-01-07] MEDS: PSYLLIUM SEED 1 PACKET PACKET PO SCH (09:14)
[2020-01-07] MEDS: DIPHENOXYLATE HCL/ATROP SULF 2.5 MG TABLET PO SCH ×3 (09:20→17:12)
[2020-01-07] MEDS: NICOTINE 14 MG PATC TD SCH (15:05)
--- NOTE | 2020-01-07 16:29 | DS ---
Transfer Discharge Summary - Diagnosis(s)/Problems (1) Abnormal LFTs Problem: Acute (2) Hypokalemia Problem: Acute (3) Hepatic cirrhosis Problem: Acute (4) UTI (urinary tract infection) Problem: Acute (5) Hyperammonemia Problem: Acute (6) Hepatomegaly Problem: Acute (7) Elevated INR Problem: Acute (8) Hyperbilirubinemia Problem: Acute - Course Description of Stay: This is a 49-year-old female patient with no local primary care physician but who has been admitted to our hospital previously for hepatitis and liver failure. For the past 2 months she has been having diarrhea and having multiple liquid stools every day and sometimes at night. She has been seen at the GI clinic at the [facility] but it has been quite a while and apparently she is in lost to follow-up. This visit she is afebrile and denies pain anywhere. Work-up in the emergency room shows liver failure with the ALT being normal but the AST being 5 times upper limit of normal at 256. Alkaline phosphatase is greater than 500. The bilirubin is greater than 12. Urinalysis reflects spillage of a large amount of bilirubin in the urine. CT scan of the abdomen shows the liver is enlarged measuring 28 cm and it is nodular and cirrhotic in appearance. There is cholelithiasis present. No evidence of acute cholecystitis. The common bile duct was not discussed on the CT report but would be better evaluated by ultrasound anyway. Tonight she reports that she is hungry. She had an episode of dry heaves this morning when she gagged herself with her toothbrush but aside from that has not had any vomiting. She has had bright red blood on tissue when wiping after stooling. This is her main concern. Strikingly she does not appear jaundiced or icteric with this high of a bilirubin. The liver is palpably enlarged but not particularly tender to palpation. The CT shows a small amount of pelvic fluid which is probably ascites but there is no large amount of ascites. And her succussion splash is negative. There is no peripheral edema. She denies diabetes or history of the same however her random blood sugar admission to ER was 167. Social history entered by the nurse says she never has been an alcohol drinker. A previous diagnoses suggested alcoholic cirrhosis of the liver. 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 During her stay her transaminases have actually improved. Alkaline phosphatase has fallen considerably from 500s to 300s. The bilirubin has consistently climbed however and is 31.7 today. The INR was climbing and reached 3.4. She was given albumin and vitamin K and the INR is around 2.5 now. Her ammonia level climbed into the upper 60s. She was started on lactulose which dropped the ammonia to normal the next day. I reduce the lactulose to once a day. It bumped up slightly into the 50s and then has dropped back down again today to <17. She of course has a lot of cutaneous icterus and scleral icterus. 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 She is not having dark-colored urine now like she was when she was admitted. Her albumin was low at 2.2. She was started on Ensure 4 times a day between meals and bedtime and was given some IV albumin 50 g daily x2 days. She tolerated this well. At this time she is ambulatory and does not feel too badly but the liver remains very swollen. Hepatitis studies all came back negative. I did not do hepatitis A since the transaminases were so low. She did spike a fever yesterday but is afebrile today. Etiology is uncertain. She had a urinary tract infection on admission and that has been treated with ceftriaxone. She had some leukocytes in her stool but cultures were negavitive. Empirically I have started her on Metronidazole 250mg daily for 7 days (on day 5 today). The remaining concerns are her very swollen liver which is causing the rising INR and rising bilirubin levels. She needs to be transferred to a tertiary facility where they have hepatology. We have been trying to transfer her to the [facility] for over a week and they have not been able to accommodate her admission. Therefore, she will be transferred to [facility] in [facility]. Dr. Vazquez has agreed to accept. Procedures Performed: none - Results and Findings Results and Findings: Laboratory Results - last 24 hr 12/31/19 01/07/20 01/07/20 06:30 07:41 07:41 WBC RBC Hgb Hct MCV MCH MCHC RDW Plt Count MPV Neutrophils % (Manual) Band Neuts % (Manual) Lymphocytes % (Manual) Monocytes % (Manual) Immature Granulocytes Neutrophils # (Manual) Lymphocytes # (Manual) Monocytes # (Manual) Platelet Estimate Anisocytosis Target Cells PT 19.6 H INR (Anticoag Therapy) 2.03 H Sodium 133 Plasma Sodium 133 Potassium 4.8 H Chloride 102 Carbon Dioxide 20.3 L Anion Gap 15.5 H BUN 10 Creatinine 1.06 Est GFR (Non-Af Amer) 59 L BUN/Creatinine Ratio 9.4 Random Glucose 95 Calcium 8.8 Calcium Adj for Albumin 9.6 Total Bilirubin 36.8 H* AST 74 H ALT 12 L Alkaline Phosphatase 202 H Total Protein 6.5 Albumin 2.6 L Hepatitis C Viral RNA Not detected 01/07/20 07:41 WBC 14.4 H D RBC 2.97 L Hgb 10.7 L Hct 32.7 L MCV 110.1 H MCH 36.0 H MCHC 32.7 RDW 22.1 H Plt Count 237 MPV 9.9 Neutrophils % (Manual) 81 H Band Neuts % (Manual) 2 Lymphocytes % (Manual) 9 L Monocytes % (Manual) 7 Immature Granulocytes 1 Neutrophils # (Manual) 11.7 H Lymphocytes # (Manual) 1.3 L Monocytes # (Manual) 1.0 Platelet Estimate Normal Anisocytosis 1+ Target Cells 1+ PT INR (Anticoag Therapy) Sodium Plasma Sodium Potassium Chloride Carbon Dioxide Anion Gap BUN Creatinine Est GFR (Non-Af Amer) BUN/Creatinine Ratio Random Glucose Calcium Calcium Adj for Albumin Total Bilirubin AST ALT Alkaline Phosphatase Total Protein Albumin Hepatitis C Viral RNA - Medications Medications: Active Medications Diphenoxylate HCl/Atropine (Lomotil) 2.5 mg PO QID MARI Stop: 02/01/20 17:01 Last Admin: 01/07/20 13:31 Dose: 2.5 mg Documented by: Furosemide (Lasix) 20 mg PO DAILY MARI Stop: 01/30/20 09:01 Last Admin: 01/07/20 09:13 Dose: 20 mg Documented by: Gabapentin (Neurontin) 300 mg PO BID MARI Stop: 01/29/20 21:01 Last Admin: 01/06/20 21:01 Dose: 300 mg Documented by: Dextrose/Sodium Chloride (Dextrose 5%-0.45%Ns) 1,000 mls @ 30 mls/hr IV .Q24H PRN PRN Reason: HYDRATION Stop: 02/05/20 13:35 Last Admin: 01/06/20 14:13 Dose: 30 mls/hr Documented by: Ibuprofen (Motrin) 600 mg PO Q6H PRN PRN Reason: Fever Stop: 02/04/20 10:35 Last Admin: 01/06/20 18:26 Dose: 600 mg Documented by: Lactulose (Enulose) 10 g PO DAILY [facility] Stop: 02/02/20 09:01 Last Admin: 01/06/20 08:40 Dose: 10 g Documented by: Levothyroxine Sodium (Synthroid) 75 mcg PO MoTuWeThFrSa@0700 MARI Stop: 01/30/20 07:01 Last Admin: 01/07/20 06:38 Dose: 75 mcg Documented by: Mirtazapine (Remeron) 30 mg PO HS [facility] Stop: 02/01/20 21:01 Last Admin: 01/06/20 21:08 Dose: 30 mg Documented by: Nicotine (Nicoderm) 14 mg TD Q24H [facility] Stop: 01/30/20 15:01 Last Admin: 01/07/20 15:05 Dose: 14 mg Documented by: Psyllium Hydrophilic Mucilloid (Metamucil) 2 each PO BID [facility] Stop: 01/31/20 21:01 Last Admin: 01/07/20 09:14 Dose: 1 each Documented by: Discontinued Medications Diatrizoate Meglum/Diatrizoate Sod (Gastrografin Solution) 60 ml PO ONCE ONE Stop: 12/30/19 11:22 Last Admin: 12/30/19 11:45 Dose: 60 ml Documented by: Hydroxyzine HCl (Atarax) 25 mg PO ONCE ONE Stop: 01/05/20 01:01 [employer] Last Admin: 01/05/20 09:45 Dose: Not Given Documented by: Sodium Chloride (Sodium Chloride 0.9%) 1,000 mls @ 125 mls/hr IV .Q8H ONE Stop: 12/30/19 19:20 Last Infusion: 12/30/19 19:51 Dose: Infused Documented by: Potassium Chloride/Water (Kcl 10 Meq/100 Ml Piggyback) 100 mls @ 100 mls/hr IV ONCE ONE Stop: 12/30/19 12:20 Last Infusion: 12/30/19 13:16 Dose: Infused Documented by: Ceftriaxone Sodium (Rocephin 1000 Mg Er Piggyback) 1,000 mg in 100 mls @ 200 mls/hr IV ONCE ONE Stop: 12/30/19 16:49 Last Infusion: 12/30/19 17:02 Dose: Infused Documented by: Ceftriaxone Sodium 1,000 mg/ (Dextrose/Water) 100 mls @ 200 mls/hr IV Q24H MARI; Protocol Stop: 01/29/20 19:46 Last Admin: 12/30/19 23:21 Dose: Not Given Documented by: Ceftriaxone Sodium 1,000 mg/ (Dextrose/Water) 100 mls @ 200 mls/hr IV Q24H MARI; Protocol Stop: 01/30/20 16:01 Last Infusion: 01/06/20 18:05 Dose: Infused Documented by: Albumin Human (Albuminar-25) 12.5 g in 50 mls @ 50 mls/hr IV DAILY [facility] Stop: 01/04/20 09:59 Last Infusion: 01/03/20 14:12 Dose: Infused Documented by: Albumin Human (Albuminar-25) 37.5 g in 150 mls @ 50 mls/hr IV ONCE ONE Stop: 01/03/20 16:29 Last Infusion: 01/03/20 16:36 Dose: Infused Documented by: Albumin Human (Albuminar-25) 50 g in 200 mls @ 50 mls/hr IV DAILY MARI Stop: 01/04/20 12:59 Last Infusion: 01/04/20 12:32 Dose: Infused Documented by: Lactulose (Enulose) 10 g PO BID [facility] Stop: 02/01/20 21:01 Last Admin: 01/02/20 22:06 Dose: 10 g Documented by: Levothyroxine Sodium (Synthroid) [facility] Stop: 01/29/20 19:31 Last Admin: 12/30/19 21:28 Dose: 75 mcg Documented by: Metronidazole (Flagyl) 500 mg PO ONCE ONE; Protocol Stop: 12/30/19 19:39 Last Admin: 12/30/19 21:28 Dose: 500 mg Documented by: Metronidazole (Flagyl) 500 mg PO Q8H MARI; Protocol Stop: 02/01/20 13:46 Last Admin: 01/03/20 05:38 Dose: 500 mg Documented by: Metronidazole (Flagyl) 250 mg PO Q8H MARI; Protocol Stop: 02/02/20 13:46 Last Admin: 01/07/20 05:35 Dose: 250 mg Documented by: Ondansetron HCl (Zofran) 8 mg IV ONCE ONE Stop: 12/30/19 11:51 Last Admin: 12/30/19 11:51 Dose: 8 mg Documented by: Phytonadione (Aqua-Mephyton) 5 mg IM DAILY [facility] Stop: 01/05/20 09:01 Last Admin: 01/03/20 12:50 Dose: 5 mg Documented by: Phytonadione (Vitamin K) 5 mg IM DAILY [facility] Stop: 01/04/20 09:01 Last Admin: 01/04/20 08:15 Dose: 5 mg Documented by: Phytonadione (Vitamin K) 10 mg IM ONCE ONE Stop: 01/05/20 10:01 Last Admin: 01/05/20 10:43 Dose: 10 mg Documented by: Potassium Chloride (K-Dur) 20 meq PO BIDWM [facility] Stop: 01/29/20 21:01 Last Admin: 12/31/19 08:18 Dose: 20 meq Documented by: Potassium Chloride (Klor-Con 10) 40 meq PO BIDWM [facility] Stop: 01/30/20 12:39 Last Admin: 12/31/19 13:22 Dose: Not Given Documented by: Potassium Chloride (K-Dur) 40 meq PO BIDWM [facility] Stop: 01/30/20 12:39 Last Admin: 01/06/20 17:35 Dose: 40 meq Documented by: Psyllium Hydrophilic Mucilloid (Metamucil) 1 each PO BID [facility] Stop: 01/29/20 21:01 Last Admin: 01/01/20 09:17 Dose: 1 each Documented by: Temazepam (Restoril) 30 mg PO HS [facility] Stop: 01/31/20 21:01 Last Admin: 01/01/20 20:44 Dose: 30 mg Documented by: - Disposition Disposition: Short Term Hospital Inpatient Condition: Fair Discharge Date: 01/07/20 Discharge Time: 17:00
--- NOTE | 2020-01-07 16:38 | PN ---
Subjective - Date and Time Seen Date: 01/07/20 Time: 12:30 Objective - Review of Systems Generalized/Overall Review: Reports: Weakness, Malaise EENTM: Reports: No Symptoms Reported Respiratory: Reports: No Symptoms Reported Cardiac: Reports: No Symptoms Reported Abdominal: Reports: Other - early satiety Genitourinary Symptoms: Reports: No Symptoms Reported Musculoskeletal Complaints: Reports: No Symptoms Reported Neurological: Reports: No Symptoms Reported Skin: Reports: Change in Color - cutaneous ichterus Endocrine: Reports: No Symptoms Reported - Vitals Vitals: Last Vital Signs Temp 37 C 01/07/20 14:56 Pulse 111 H 01/07/20 14:56 Resp 18 01/07/20 14:56 BP 103/65 01/07/20 14:56 Pulse Ox 96 01/07/20 14:56 - Abnormal Lab Findings Abnormal Lab Findings: Abnormal Lab Results 01/07/20 01/07/20 01/07/20 Range/Units 07:41 07:41 07:41 WBC 14.4 H D (4.0-10.5) K/mm3 RBC 2.97 L (4.2-5.4) M/mm3 Hgb 10.7 L (12.5-16.0) gm/dL Hct 32.7 L (37.0-47.0) % MCV 110.1 H (78-100) fl MCH 36.0 H (27-31) pg RDW 22.1 H (11.5-14.0) % Neutrophils % (Manual) 81 H (42-75) % Lymphocytes % (Manual) 9 L (20-51) % Neutrophils # (Manual) 11.7 H (1.3-6.0) K/mm3 Lymphocytes # (Manual) 1.3 L (1.5-3.5) k/mm3 PT 19.6 H (9.1-10.7) Seconds INR (Anticoag Therapy) 2.03 H (0.92-1.08) INR Potassium 4.8 H (3.4-4.6) mmol/L Carbon Dioxide 20.3 L (24-32.6) mmol/L Anion Gap 15.5 H (6.8-13.8) mmol/L Est GFR (Non-Af Amer) 59 L (60-130) mL/min Total Bilirubin 36.8 H* (0.0-1.1) mg/dL AST 74 H (0-48) U/L ALT 12 L (19-67) U/L Alkaline Phosphatase 202 H (50-170) U/L Albumin 2.6 L (3.4-5.0) gm/dl - Exam Constitutional: Present: Alert, Oriented x3, Cooperative, Well developed, Well nourished, No distress ENT Exam: Present: normal ENT inspection, hearing grossly normal, pharynx normal, TMs normal Neck: Present: non-tender, full range of motion, supple, normal inspection Breasts: Present: Exam deferred Respiratory: Present: chest non-tender, lungs clear, normal breath sounds, no respiratory distress, no accessory muscle use Cardiovascular/Chest: Present: normal peripheral pulses, regular rate, rhythm, no chest tenderness, no edema, no gallop, no JVD, no murmur, no rub Abdomen: Present: Normal bowel sounds, soft. Absent: no hepatospenomegaly - profound hepatomegally /Rectal: Present: Exam deferred Extremity: Present: normal range of motion, non-tender, normal inspection Skin Exam: Present: normal color, warm/dry, no cyanosis Lymphatic: Present: no adenopathy Neurologic: Present: stock control clerk II-XII nml as tested, normal cerebellar test, no motor/sensory deficits, alert, normal mood/affect, oriented x 3 Appearance: Present: appropriate appearance, appropriate insight, neat Eye contact: Present: cooperative, good eye contact, normal speech Thoughts: Present: normal thought pattern, no apparent hallucination Assessment/Plan Plan Narrative: 1. Continue to seek a transfer to a tertiary hospital with hepatology 2. Reculture blood and urine as recommended by a chief mechanical officer in [place] and another in [place] and another at the [facility]. So far no beds are available for her. - Problems/Diagnosis (1) Abnormal LFTs Problem: Acute (2) Hypokalemia Problem: Acute (3) Hepatic cirrhosis Problem: Acute Qualifiers: Hepatic cirrhosis type: alcoholic cirrhosis Ascites presence: with ascites Qualified Code(s): K70.31 - Alcoholic cirrhosis of liver with ascites (4) UTI (urinary tract infection) Problem: Acute Qualifiers: Urinary tract infection type: site unspecified Hematuria presence: with hematuria Qualified Code(s): N39.0 - Urinary tract infection, site not specified; R31.9 - Hematuria, unspecified (5) Hyperammonemia Problem: Acute (6) Hepatomegaly Problem: Acute (7) Elevated INR Problem: Acute (8) Hyperbilirubinemia Problem: Acute
[2020-01-07] MEDS: IBUPROFEN 600 MG TABLET PO PRN (17:12)
[2020-01-07] MEDS ORDERED: POTASSIUM CHLORIDE 20 MEQ TABLET.SA PO SCH (19:00)
[2020-01-07 19:44] VITALS: BP 109/64
== END 2020-01-07 19:30 | disposition short-term general hospital (02) | DRG 433 ==
LOC: ER 09:17 → MS 17:06
PROVIDERS: ADMIT Family Medicine; ATTEND Family Medicine
DX: R16.0 Hepatomegaly, not elsewhere classified; K80.20 Calculus of gallbladder without cholecystitis without obstruction; B96.20 Unspecified Escherichia coli [E. coli] as the cause of diseases classified elsewhere; F10.21 Alcohol dependence, in remission; R79.1 Abnormal coagulation profile; N39.0 Urinary tract infection, site not specified; K70.31 Alcoholic cirrhosis of liver with ascites; E87.6 Hypokalemia; E72.20 Disorder of urea cycle metabolism, unspecified